=== PATIENT | female | born 2000 | race Caucasian/White ===

== ENCOUNTER 2020-01-17 16:53 | Emergency (ER) | payer OTHER, SELFPAY ==
[2020-01-17 16:58] VITALS: BP 160/92; PULSE 80; RESP 16; TEMP 36.9; O2SAT 95; BMI 46.3
--- NOTE | 2020-01-17 17:09 | PC.NURSE ---
Patient reports she works in [employer] and is on her feet constantly. She presents with feet swelling more right than left. She started a new control medication 2 weeks ago and was concerned the control may be contributing to her condition. Right foot is swollen non-pitting warm and dry. Patient coler is darker pink on right foot. Patient denies any pain just reports that leg feels super heavy with tingling.
--- NOTE | 2020-01-17 17:35 | ED_ITS ---
HPI - Extremity Problem General: Chief complaint: Extremity Problem,Nontraumatic Stated complaint: BOTH FEET SWEELING Time Seen by Provider: 01/17/20 17:25 Source: patient Mode of arrival: ambulatory Limitations: no limitations History of Present Illness: HPI Narrative: Patient is a 19-year-old female who presents to ED today with complaints of bilateral lower extremity swelling mainly to her feet and ankle that she has noticed over the past few days. Patient states with her job she is on her feet for 10 to 12 hours. She has not noticed any redness. Associated symptoms: Deny chest pain or fever(s) Review of Systems Const: Denies: fever or chills Card: Reports: swelling of feet/ankles; Denies: chest pain, palpitations, irregular heart rhythm, edema, lightheadedness, syncope, pre-syncope, shortness of breath on exertion, shortness of breath when lying down, leg pain with exertion or bluish discoloration of hands/feet Resp: Denies: shortness of breath, productive cough or chest congestion Skin/Breast: Denies: redness Neuro: Denies: numbness in extremities, weakness in extremities or changes in sensation PFS ED PFSH: Social History Smoking and tobacco status: never smoked Female Reproductive History: Date of last menstrual period: 01/03/20 Physical Exam Const: COMMON NORMALS: no apparent distress, oriented x3, no limitations and alert NUTRITIONAL APPEARANCE: obese morbidly obese Resp: COMMON NORMALS: normal respiratory effort and clear to auscultation bilaterally AUSCULTATION: clear to auscultation bilaterally Cardio: COMMON NORMALS: regular rate and regular rhythm RATE: regular rate RHYTHM: regular rhythm Extremity: COMMON NORMALS: full ROM, normal capillary refill, no joint enlargement and no calf tenderness OTHER: pt with non pitting edema to bilat eral ankle/feet. Neuro: COMMON NORMALS: oriented x3 SENSORIUM/ORIENTATION: Yes alert Skin: COMMON NORMALS: no rashes or lesions noted GENERAL SKIN EXAM: no rashes or lesions noted OTHER: no redness/warmth Course Vital Signs: Vital signs: Vital Signs Temperature 98.2 F 01/17/20 18:42 Pulse Rate 83 01/17/20 18:42 Respiratory Rate 18 01/17/20 18:42 Blood Pressure 157/75 01/17/20 18:42 Pulse Oximetry 98 01/17/20 18:42 MDM - Extremity (Nontraumatic) MDM Narrative: Medical decision making narrative: Labs look benign. Recommend she start wearing some compression stockings and elevate her extremities after work. Recommend she follow-up with PCP. Lab Data: Labs: Lab Results 01/17/20 01/17/20 Range/Units 17:41 17:41 WBC 9.5 (4.5-13.0) 10^3/ uL RBC 4.51 (4.1-5.3) 10^6/u L Hgb 11.3 L (11.5-15.3) g/dL Hct 36.1 L (37.0-47.0) % MCV 80.0 L (81-99) fL MCH 25.1 L (28.0-34.0) pg MCHC 31.3 (30.0-36.0) g/dL RDW 14.8 (12.1-15.1) % Plt Count 337 (130-400) 10^3/c mm MPV 9.5 (7.4-10.4) fL Neut % (Auto) 68.2 % Lymph % (Auto) 25.0 % [place] % (Auto) 4.8 % Eos % (Auto) 1.6 % Baso % (Auto) 0.2 % Neut # (Auto) 6.5 (1.8-8.0) 10^3/u L Lymph # (Auto) 2.4 (1.5-6.5) 10^3/u L [place] # (Auto) 0.5 (0.2-0.9) 10^3/u L Eos # (Auto) 0.2 (0.0-0.8) 10^3/u L Baso # (Auto) 0.0 (0.0-0.1) 10^3/u L Nucleated RBC % (a uto) 0 % Nucleated RBCs # 0.0 /100WBC Sodium 135 L (136-145) mmol/L Potassium 4.0 (3.5-5.1) mmol/L Chloride 101 (98-107) mmol/L Carbon Dioxide 24 (22-29) mmol/L Anion Gap 14.0 (5-19) BUN 9 (6-20) mg/dL Creatinine 0.5 (0.5-0.9) mg/dL GFR Calculation 157.3 H (90-130) mL/min Glucose 106 (65-115) mg/dL Calculated Osmolal ity 276 L (285-295) mOsm/k g Calcium 9.4 (8.5-10.5) mg/dL Total Bilirubin 0.2 (0.15-1.2) mg/dL AST 20 (0-32) U/L ALT 23 (0-33) U/L Alkaline Phosphata se 64 (35-105) IU/L Total Protein 7.3 (6.6-8.7) g/dL Albumin 4.0 (3.5-5.2) g/dL Globulin 3.3 (1.3-4.6) g/dL Discharge Plan Discharge Patient Disposition: Home, Self-Care Clinical Impression: Bilateral lower extremity edema Condition: Stable Discharge Orders: Discharge Order (Routine); Ordered 01/17/20 Ordered By: Anuradha Gant Referrals: Grace Lopez MD [Primary Care Provider] - Patient Instructions: Leg Edema (ED) Discharge Date/Time: 01/17/20 18:43 Coding Level of Care Code ED General Education Instructor for Pooja Dial
[2020-01-17 17:48] LABS: Basophils % 0.2 %; Eosinophils # 0.2 10^3/uL (0.0-0.8); Eosinophils % 1.6 %; Hematocrit 36.1 % (37.0-47.0); Hemoglobin 11.3 g/dL (11.5-15.3); Lymphocytes # 2.4 10^3/uL (1.5-6.5); Mean Corpuscular HGB Conc 31.3 g/dL (30.0-36.0); Mean Corpuscular Hemoglobin 25.1 pg (28.0-34.0); Mean Platelet Volume 9.5 fL (7.4-10.4); Monocytes # 0.5 10^3/uL (0.2-0.9); Monocytes % 4.8 %; Neutrophils # 6.5 10^3/uL (1.8-8.0); Neutrophils % 68.2 %; Nucleated Red Blood Cells % 0 %; Platelet Count 337 10^3/cmm (130-400); Red Blood Count 4.51 10^6/uL (4.1-5.3); Red Cell Distribution Width 14.8 % (12.1-15.1); White Blood Count 9.5 10^3/uL (4.5-13.0)
[2020-01-17 18:03] LABS: Alanine Aminotransferase 23 U/L (0-33); Alkaline Phosphatase 64 IU/L (35-105); Aspartate Amino Transferase 20 U/L (0-32); Blood Urea Nitrogen 9 mg/dL (6-20); Calcium 9.4 mg/dL (8.5-10.5); Carbon Dioxide 24 mmol/L (22-29); Chloride 101 mmol/L (98-107); Globulin 3.3 g/dL (1.3-4.6); Glomerular Filtration Rate 157.3 mL/min (90-130); Glucose 106 mg/dL (65-115); Osmolality Calculated 276 mOsm/kg (285-295); Sodium 135 mmol/L (136-145); Total Bilirubin 0.2 mg/dL (0.15-1.2); Total Protein 7.3 g/dL (6.6-8.7)
[2020-01-17 18:42] VITALS: BP 157/75; PULSE 83; RESP 18; TEMP 36.8; O2SAT 98
== END 2020-01-17 18:43 | disposition home or self-care (01) ==
PROVIDERS: Emergency Provider Physician Assistant; Family Provider Family Medicine; PCP Family Medicine
DX: R60.0 Localized edema (principal)
CPT/HCPCS: 12345; 36415; 80053; 85025; 99281; 99282

== ENCOUNTER → 2020-03-20 13:51 | Outpatient (BNVA) | payer OTHER, SELFPAY | PROVIDERS: Family Provider Family Medicine; PCP Family Medicine; Visit Provider Internal Medicine Rheumatology | DX: M06.4 Inflammatory polyarthropathy (principal); M10.9 Gout, unspecified; Z79.899 Other long term (current) drug therapy; Z79.52 Long term (current) use of systemic steroids | CPT/HCPCS: 99204 ==

== ENCOUNTER → 2020-03-21 12:57 | Outpatient (BNVA) | payer OTHER, SELFPAY | PROVIDERS: Family Provider Family Medicine; PCP Family Medicine; Visit Provider Internal Medicine Rheumatology | DX: M10.9 Gout, unspecified (principal) | CPT/HCPCS: 36415; 84550 ==

== ENCOUNTER → 2020-05-09 10:20 | Outpatient (BNVA) | payer OTHER, SELFPAY | PROVIDERS: Family Provider Family Medicine; PCP Family Medicine; Visit Provider Internal Medicine Rheumatology | DX: M10.9 Gout, unspecified (principal); Z79.899 Other long term (current) drug therapy | CPT/HCPCS: 36415; 80076; 82565; 84550; 85025; 85651; 86140; 86812 ==

== ENCOUNTER → 2020-07-16 13:57 | Outpatient (BNVA) | payer OTHER, SELFPAY | PROVIDERS: Family Provider Family Medicine; PCP Family Medicine; Visit Provider Internal Medicine Rheumatology | DX: M10.9 Gout, unspecified (principal); M05.9 Rheumatoid arthritis with rheumatoid factor, unspecified; Z79.899 Other long term (current) drug therapy; Z79.52 Long term (current) use of systemic steroids | CPT/HCPCS: 99213 ==

== ENCOUNTER 2020-11-15 03:34 | Emergency (ER) | payer OTHER, SELFPAY ==
[2020-11-15] VITALS (8 sets, daily range): BP systolic 115–163; BP diastolic 73–97; PULSE 104–130; RESP 16–18; TEMP 37.9; O2SAT 91–94
--- NOTE | 2020-11-15 03:40 | XR_ITS ---
WS: [id number] Portable AP upright chest, 11/15/2020 Clinical Data: fever Comparison: PA chest, 07/08/2015. Findings: No nodules, masses or effusions are seen. The heart is normal. The pulmonary vascularity is not increased. No pneumonia or pneumothorax is seen. XR/XR chest 1V portable [id number] Impression: Negative chest.
--- NOTE | 2020-11-15 03:59 | W.ED.FEVER ---
Documented by User: Otoniel Patel MD 11/15/20 04:20 HPI - Fever General: Chief Complaint: Fever Stated Complaint: fever/nausea/diarrhea Time Seen by Provider: 11/15/20 03:36 Source: patient Mode of arrival: ambulatory Limitations: no limitations History of Present Illness: HPI Narrative: 20-year-old female who states she has had a fever along with nausea and diarrhea. States her fever was 100.5 at home. She denies any vomiting but states she is almost vomited times. She had no known sick contacts. Denies any cough Associated symptoms: Reports chills, diarrhea and nausea; Deny abdominal pain, chest pain, dysuria, headache(s) or vomiting Review of Systems Const: Reports: fever(s), chills and body aches; Denies: change in appetite Eyes: Denies: blurry vision or eye discomfort ENMT: Denies: throat pain or dental pain Card: Denies: chest pain Resp: Denies: dyspnea GI: Reports: nausea and diarrhea; Denies: abdominal pain or vomiting : Denies: dysuria Musc: Denies: neck pain or back pain Skin/Breast: Denies: rash Neuro: Denies: headache(s) Psych: Denies: depression Shlomo/Lymph: Denies: easy bruising All/Imm: Denies: urticaria PFSH ED PFSH: Medical History (Updated 11/15/20 @ 09:21 by Julisa Madrigal MD) Anxiety Chronic steroid use Dietary counseling Gout, arthritis High risk medication use Joint pain of ankle and foot Surgical History History of cholecystectomy History of hip surgery pin in right hip Family History Other CAD (coronary artery disease) Diabetes Family history of premature coronary artery disease Hypertension Lung disease Stroke Denies family history of Rheumatoid arthritis Chronic kidney disease (CKD) Systemic lupus erythematosus (SLE) in adult Cancer Social History Smoking and tobacco status: never smoked Alcohol intake: never History of recent travel: No Female Reproductive History: Date of last menstrual period: 01/03/20 Physical Exam Const: COMMON NORMALS: no acute distress, patient oriented x3 and healthy appearing HENMT: COMMON NORMALS: normocephalic and atraumatic HEAD & SCALP: normocephalic and atraumatic Eye: COMMON NORMALS: Equal, round and reactive pupils present and EOMs intact bilaterally PUPIL: Yes Equal, round and reactive pupils present Neck/C-Spine: COMMON NORMALS: full ROM and supple Chest: COMMONS NORMALS: normal inspection of the chest and normal palpation of entire chest wall Resp: COMMON NORMALS: normal respiratory effort, No retractions, No use of accessory muscles and clear to auscultation bilaterally AUSCULTATION: clear to auscultation bilaterally Cardio: COMMON NORMALS: regular rhythm and No murmurs present (Cardio) RATE: tachycardic RHYTHM: regular rhythm GI: COMMON NORMALS: Normal to inspection, nondistended, normoactive bowel sounds present, Soft to palpation, non-tender and no masses PALPATION: Yes Soft to palpation Extremity: COMMON NORMALS: normal to inspection and full ROM Neuro: COMMON NORMALS: patient oriented x3, moves all extremities and no focal motor deficits Psych: COMMON NORMALS: mental status grossly normal, Normal thought process present and cooperative THOUGHT PROCESS: Normal thought process present Skin: COMMON NORMALS: no rashes or lesions noted and no wounds GENERAL SKIN EXAM: no rashes or lesions noted Course Vital Signs: Vital signs: Vital Signs Temperature 100.3 F H 11/15/20 03:40 Pulse Rate 125 H 11/15/20 10:03 Respiratory Rate 18 11/15/20 10:03 Blood Pressure 163/81 11/15/20 10:03 Pulse Oximetry 94 11/15/20 10:03 MDM - Fever Lab Data: Labs: Lab Results 11/15/20 11/15/20 11/15/20 Range/Units 04:07 04:29 04:29 WBC 11.0 H (4.0-10.0) 10^3/ uL RBC 4.76 (4.1-5.3) 10^6/u L Hgb 12.4 (11.5-15.3) g/dL Hct 38.8 (37.0-47.0) % MCV 81.5 (81-99) fL MCH 26.1 L (28.0-34.0) pg MCHC 32.0 (30.0-36.0) g/dL RDW 13.3 (12.1-15.1) % Plt Count 258 (130-400) 10^3/c mm MPV 10.8 H (7.4-10.4) fL Neut % (Auto) 85.9 % Lymph % (Auto) 9.2 % [place] % (Auto) 4.2 % Eos % (Auto) 0.1 % Baso % (Auto) 0.2 % Neut # (Auto) 9.42 H (1.8-7.7) 10^3/u L Lymph # (Auto) 1.0 (0.8-4.8) 10^3/u L [place] # (Auto) 0.5 (0.2-0.9) 10^3/u L Eos # (Auto) 0.0 (0.0-0.8) 10^3/u L Baso # (Auto) 0.0 (0.0-0.1) 10^3/u L Nucleated RBC % (a uto) 0 % Nucleated RBCs # 0.0 /100WBC Sodium 133 L (136-145) mmol/L Potassium 3.7 (3.5-5.1) mmol/L Chloride 100 (98-107) mmol/L Carbon Dioxide 22 (22-29) mmol/L Anion Gap 14.7 (5-19) BUN 8 (6-20) mg/dL Creatinine 0.6 (0.5-0.9) mg/dL GFR Calculation 126.2 (90-130) mL/min Glucose 129 H (65-115) mg/dL Calculated Osmolal ity 276 L (285-295) mOsm/k g Lactate (0.5-2.2) mmol/L Calcium 9.0 (8.5-10.5) mg/dL Total Bilirubin 0.3 (0.15-1.2) mg/dL AST 19 (0-32) U/L ALT 30 (0-33) U/L Alkaline Phosphata se 66 (35-105) IU/L Total Protein 6.5 L (6.6-8.7) g/dL Albumin 3.7 (3.5-5.2) g/dL Globulin 2.8 (1.3-4.6) g/dL HCG, Qual (Negative) Urine Color (Yellow) Urine Appearance (CLEAR) Urine pH (5-7) Ur Specific Gravit y (1.005-1.030) Urine Protein (Negative) Urine Glucose (UA) (Normal) Urine Ketones (Negative) Urine Blood (Negative) Urine Nitrate (Negative) Urine Bilirubin (Negative) Urine Urobilinogen (Negative) mg/dL Ur Leukocyte Viki ase (Negative) Urine RBC (0-2) /hpf Urine WBC (0-5) /hpf Ur Squamous Epith Cells (0-5) /hpf Amorphous Sediment Urine Bacteria (NONE) /hpf Influenza Type A A g Negative (Negative) Influenza Type B A g Negative (Negative) 11/15/20 11/15/20 11/15/20 Range/Units 04:29 04:53 04:53 WBC (4.0-10.0) 10^3/ uL RBC (4.1-5.3) 10^6/u L Hgb (11.5-15.3) g/dL Hct (37.0-47.0) % MCV (81-99) fL MCH (28.0-34.0) pg MCHC (30.0-36.0) g/dL RDW (12.1-15.1) % Plt Count (130-400) 10^3/c mm MPV (7.4-10.4) fL Neut % (Auto) % Lymph % (Auto) % [place] % (Auto) % Eos % (Auto) % Baso % (Auto) % Neut # (Auto) (1.8-7.7) 10^3/u L Lymph # (Auto) (0.8-4.8) 10^3/u L [place] # (Auto) (0.2-0.9) 10^3/u L Eos # (Auto) (0.0-0.8) 10^3/u L Baso # (Auto) (0.0-0.1) 10^3/u L Nucleated RBC % (a uto) % Nucleated RBCs # /100WBC Sodium (136-145) mmol/L Potassium (3.5-5.1) mmol/L Chloride (98-107) mmol/L Carbon Dioxide (22-29) mmol/L Anion Gap (5-19) BUN (6-20) mg/dL Creatinine (0.5-0.9) mg/dL GFR Calculation (90-130) mL/min Glucose (65-115) mg/dL Calculated Osmolal ity (285-295) mOsm/k g Lactate 1.5 (0.5-2.2) mmol/L Calcium (8.5-10.5) mg/dL Total Bilirubin (0.15-1.2) mg/dL AST (0-32) U/L ALT (0-33) U/L Alkaline Phosphata se (35-105) IU/L Total Protein (6.6-8.7) g/dL Albumin (3.5-5.2) g/dL Globulin (1.3-4.6) g/dL HCG, Qual Negative (Negative) Urine Color Yellow (Yellow) Urine Appearance Hazy A (CLEAR) Urine pH 6.5 (5-7) Ur Specific Gravit y 1.005 (1.005-1.030) Urine Protein Neg (Negative) Urine Glucose (UA) Norm (Normal) Urine Ketones 1+ H (Negative) Urine Blood 2+ H (Negative) Urine Nitrate Negative (Negative) Urine Bilirubin Neg (Negative) Urine Urobilinogen Norm (Negative) mg/dL Ur Leukocyte Viki ase 2+ H (Negative) Urine RBC None (0-2) /hpf Urine WBC 55-80 H (0-5) /hpf Ur Squamous Epith Cells 25-40 H (0-5) /hpf Amorphous Sediment Not Reportable Urine Bacteria 3+ H (NONE) /hpf Influenza Type A A g (Negative) Influenza Type B A g (Negative) Imaging Data^: CXR: Attestation: I personally reviewed and interpreted this imaging study as follows: My impression: No acute abnormality Discharge Plan Discharge Patient Disposition: Home Clinical Impression: Enteritis Condition: Stable Prescriptions: New ciprofloxacin HCl 750 mg tablet 750 mg PO BID Qty: 14 RF: 0 metronidazole 500 mg tablet 500 mg PO Q8H 7 Days Qty: 21 RF: 0 ondansetron 4 mg tablet,disintegrating 4 mg PO Q6H PRN (Reason: nausea and vomiting) Qty: 10 RF: 0 Discontinued colchicine 0.6 mg tablet 0.6 mg PO BID Qty: 60 RF: 3 allopurinol 100 mg tablet 100 mg PO QAM RF: 0 No Action norgestimate-ethinyl estradiol [Tri-Sprintec (28)] 0.18/0.215/0.25 mg-35 mcg (28) tablet 1 tab PO QAM RF: 0 Tylenol Extra Strength 500 mg Tablet 1,000 mg PO PRN RF: 0 paroxetine HCl 20 mg tablet 20 mg PO QAM RF: 0 Discharge Orders: Discharge ED (Routine); Ordered 11/15/20 Ordered By: Julisa Madrigal Referrals: Grace Lopez MD [Primary Care Provider] - Discharge Diet: Clear Liquid Discharge Activity: Increase activity as tolerated Patient Instructions: Diarrhea - Adult Activity Restrictions/Additional Instructions: Follow up with your doctor in about a week for a recheck. Return to the ED if worse pain, unable to take or keep down fluids, or any other new or concerning symptoms. Stand Alone Forms: Work/School Release Coding Level of Care Code ED Registered Nurse for Chg Fwd Exam Comprehensive Documented by User: Julisa Madrigal MD 11/15/20 14:23 HPI - Fever General: Chief Complaint: Fever Stated Complaint: fever/nausea/diarrhea Time Seen by Provider: 11/15/20 03:36 [facility] ED PFSH: Medical History (Updated 11/15/20 @ 09:21 by Julisa Madrigal MD) Anxiety Chronic steroid use Dietary counseling Gout, arthritis High risk medication use Joint pain of ankle and foot Surgical History History of cholecystectomy History of hip surgery pin in right hip Family History Other CAD (coronary artery disease) Diabetes Family history of premature coronary artery disease Hypertension Lung disease Stroke Denies family history of Rheumatoid arthritis Chronic kidney disease (CKD) Systemic lupus erythematosus (SLE) in adult Cancer Social History Smoking and tobacco status: never smoked Alcohol intake: never History of recent travel: No Course ED course: I assumed care of this patient from Dr. Patel at shift change. She was waiting for CT scan. She had a Covid test sent but will not be back till tomorrow. Flu was negative. Urine was grossly contaminated and unlikely the source of her symptoms anyway. CT showed fluid in the bowel consistent with enteritis. Also some mesenteric adenitis. She was hydrated in the ER and pain was managed. She was given IV antibiotics for concern with her fever and diarrhea, as well as the adenitis. This all may be viral however is not clear at this time. She works here in [employer] and as such may have had Covid exposure. Her oxygen level is very good. There is nothing in her labs that really suggest that this would be Covid. She clinically looked well and was able to tolerate fluids at the time of discharge. She understands to return if she is worse in any way. Covid test will be back tomorrow and if that is positive she probably should stop the antibiotics. Vital Signs: Vital signs: Vital Signs Temperature 100.3 F H 11/15/20 03:40 Pulse Rate 125 H 11/15/20 10:03 Respiratory Rate 18 11/15/20 10:03 Blood Pressure 163/81 11/15/20 10:03 Pulse Oximetry 94 11/15/20 10:03 MDM - Fever Lab Data: Labs: Lab Results 11/15/20 11/15/20 11/15/20 Range/Units 04:07 04:29 04:29 WBC 11.0 H (4.0-10.0) 10^3/ uL RBC 4.76 (4.1-5.3) 10^6/u L Hgb 12.4 (11.5-15.3) g/dL Hct 38.8 (37.0-47.0) % MCV 81.5 (81-99) fL MCH 26.1 L (28.0-34.0) pg MCHC 32.0 (30.0-36.0) g/dL RDW 13.3 (12.1-15.1) % Plt Count 258 (130-400) 10^3/c mm MPV 10.8 H (7.4-10.4) fL Neut % (Auto) 85.9 % Lymph % (Auto) 9.2 % [place] % (Auto) 4.2 % Eos % (Auto) 0.1 % Baso % (Auto) 0.2 % Neut # (Auto) 9.42 H (1.8-7.7) 10^3/u L Lymph # (Auto) 1.0 (0.8-4.8) 10^3/u L [place] # (Auto) 0.5 (0.2-0.9) 10^3/u L Eos # (Auto) 0.0 (0.0-0.8) 10^3/u L Baso # (Auto) 0.0 (0.0-0.1) 10^3/u L Nucleated RBC % (a uto) 0 % Nucleated RBCs # 0.0 /100WBC Sodium 133 L (136-145) mmol/L Potassium 3.7 (3.5-5.1) mmol/L Chloride 100 (98-107) mmol/L Carbon Dioxide 22 (22-29) mmol/L Anion Gap 14.7 (5-19) BUN 8 (6-20) mg/dL Creatinine 0.6 (0.5-0.9) mg/dL GFR Calculation 126.2 (90-130) mL/min Glucose 129 H (65-115) mg/dL Calculated Osmolal ity 276 L (285-295) mOsm/k g Lactate (0.5-2.2) mmol/L Calcium 9.0 (8.5-10.5) mg/dL Total Bilirubin 0.3 (0.15-1.2) mg/dL AST 19 (0-32) U/L ALT 30 (0-33) U/L Alkaline Phosphata se 66 (35-105) IU/L Total Protein 6.5 L (6.6-8.7) g/dL Albumin 3.7 (3.5-5.2) g/dL Globulin 2.8 (1.3-4.6) g/dL HCG, Qual (Negative) Urine Color (Yellow) Urine Appearance (CLEAR) Urine pH (5-7) Ur Specific Gravit y (1.005-1.030) Urine Protein (Negative) Urine Glucose (UA) (Normal) Urine Ketones (Negative) Urine Blood (Negative) Urine Nitrate (Negative) Urine Bilirubin (Negative) Urine Urobilinogen (Negative) mg/dL Ur Leukocyte Viki ase (Negative) Urine RBC (0-2) /hpf Urine WBC (0-5) /hpf Ur Squamous Epith Cells (0-5) /hpf Amorphous Sediment Urine Bacteria (NONE) /hpf Influenza Type A A g Negative (Negative) Influenza Type B A g Negative (Negative) 11/15/20 11/15/20 11/15/20 Range/Units 04:29 04:53 04:53 WBC (4.0-10.0) 10^3/ uL RBC (4.1-5.3) 10^6/u L Hgb (11.5-15.3) g/dL Hct (37.0-47.0) % MCV (81-99) fL MCH (28.0-34.0) pg MCHC (30.0-36.0) g/dL RDW (12.1-15.1) % Plt Count (130-400) 10^3/c mm MPV (7.4-10.4) fL Neut % (Auto) % Lymph % (Auto) % [place] % (Auto) % Eos % (Auto) % Baso % (Auto) % Neut # (Auto) (1.8-7.7) 10^3/u L Lymph # (Auto) (0.8-4.8) 10^3/u L [place] # (Auto) (0.2-0.9) 10^3/u L Eos # (Auto) (0.0-0.8) 10^3/u L Baso # (Auto) (0.0-0.1) 10^3/u L Nucleated RBC % (a uto) % Nucleated RBCs # /100WBC Sodium (136-145) mmol/L Potassium (3.5-5.1) mmol/L Chloride (98-107) mmol/L Carbon Dioxide (22-29) mmol/L Anion Gap (5-19) BUN (6-20) mg/dL Creatinine (0.5-0.9) mg/dL GFR Calculation (90-130) mL/min Glucose (65-115) mg/dL Calculated Osmolal ity (285-295) mOsm/k g Lactate 1.5 (0.5-2.2) mmol/L Calcium (8.5-10.5) mg/dL Total Bilirubin (0.15-1.2) mg/dL AST (0-32) U/L ALT (0-33) U/L Alkaline Phosphata se (35-105) IU/L Total Protein (6.6-8.7) g/dL Albumin (3.5-5.2) g/dL Globulin (1.3-4.6) g/dL HCG, Qual Negative (Negative) Urine Color Yellow (Yellow) Urine Appearance Hazy A (CLEAR) Urine pH 6.5 (5-7) Ur Specific Gravit y 1.005 (1.005-1.030) Urine Protein Neg (Negative) Urine Glucose (UA) Norm (Normal) Urine Ketones 1+ H (Negative) Urine Blood 2+ H (Negative) Urine Nitrate Negative (Negative) Urine Bilirubin Neg (Negative) Urine Urobilinogen Norm (Negative) mg/dL Ur Leukocyte Viki ase 2+ H (Negative) Urine RBC None (0-2) /hpf Urine WBC 55-80 H (0-5) /hpf Ur Squamous Epith Cells 25-40 H (0-5) /hpf Amorphous Sediment Not Reportable Urine Bacteria 3+ H (NONE) /hpf Influenza Type A A g (Negative) Influenza Type B A g (Negative) Discharge Plan Discharge Patient Disposition: Home Clinical Impression: Enteritis Condition: Stable Prescriptions: New ciprofloxacin HCl 750 mg tablet 750 mg PO BID Qty: 14 RF: 0 metronidazole 500 mg tablet 500 mg PO Q8H 7 Days Qty: 21 RF: 0 ondansetron 4 mg tablet,disintegrating 4 mg PO Q6H PRN (Reason: nausea and vomiting) Qty: 10 RF: 0 Discontinued colchicine 0.6 mg tablet 0.6 mg PO BID Qty: 60 RF: 3 allopurinol 100 mg tablet 100 mg PO QAM RF: 0 No Action norgestimate-ethinyl estradiol [Tri-Sprintec (28)] 0.18/0.215/0.25 mg-35 mcg (28) tablet 1 tab PO QAM RF: 0 Tylenol Extra Strength 500 mg Tablet 1,000 mg PO PRN RF: 0 paroxetine HCl 20 mg tablet 20 mg PO QAM RF: 0 Discharge Orders: Discharge ED (Routine); Ordered 11/15/20 Ordered By: Julisa Madrigal Referrals: Grace Lopez MD [Primary Care Provider] - Discharge Diet: Clear Liquid Discharge Activity: Increase activity as tolerated Patient Instructions: Diarrhea - Adult Activity Restrictions/Additional Instructions: Follow up with your doctor in about a week for a recheck. Return to the ED if worse pain, unable to take or keep down fluids, or any other new or concerning symptoms. Stand Alone Forms: Work/School Release Coding Level of Care Code ED Registered Nurse for Pooja Fwnalini Exam Comprehensive
[2020-11-15] MEDS: sodium chloride 0.9% 1,000 ML 999 ML IV ×2 (04:29→05:08)
[2020-11-15] MEDS: ondansetron 2 mg/ML SDV 2 mL 4 MG IVP ×2 (04:29→05:06)
[2020-11-15] MEDS: acetaminophen 325 mg Tablet 650 MG PO (04:29)
[2020-11-15 04:44] LABS: Basophils % 0.2 %; Eosinophils % 0.1 %; Hematocrit 38.8 % (37.0-47.0); Hemoglobin 12.4 g/dL (11.5-15.3); Lymphocytes % 9.2 %; Mean Corpuscular Hemoglobin 26.1 pg (28.0-34.0); Mean Corpuscular Volume 81.5 fL (81-99); Mean Platelet Volume 10.8 fL (7.4-10.4); Monocytes # 0.5 10^3/uL (0.2-0.9); Monocytes % 4.2 %; Neutrophils # 9.42 10^3/uL (1.8-7.7); Neutrophils % 85.9 %; Nucleated Red Blood Cells % 0 %; Platelet Count 258 10^3/cmm (130-400); Red Blood Count 4.76 10^6/uL (4.1-5.3); Red Cell Distribution Width 13.3 % (12.1-15.1)
--- NOTE | 2020-11-15 04:53 | CTR_ITS ---
PROCEDURE INFORMATION: Exam: CT Abdomen And Pelvis With Contrast Exam date and time: 11/15/2020 4:56 AM Age: 20 years old Clinical indication: Fever and nausea; Abdominal pain; Generalized; Prior surgery; Surgery type: Gb. Hip pinning. ; Patient HX: Fever with diffuse abd pain, nausea, and diarrhea. TECHNIQUE: Imaging protocol: Computed tomography of the abdomen and pelvis with intravenous contrast. Radiation optimization: All CT scans at this facility use at least one of these dose optimization techniques: automated exposure control; mA and/or kV adjustment per patient size (includes targeted exams where dose is matched to clinical indication); or iterative reconstruction. Contrast material: OMNI 300; Contrast volume: 95 ml; Contrast route: INTRAVENOUS (IV); COMPARISON: CR Hip 2-3v LEFT wwo Pelv* [id number] 12/26/2013 4:08 PM RADIATION DOSE METRICS: Total DLP (mGy-cm): 1874.35 FINDINGS: Liver: Normal. No mass. Gallbladder and bile ducts: Cholecystectomy. Normal bile ducts. Pancreas: Normal. No ductal dilation. Spleen: Normal. No splenomegaly. Adrenal glands: Normal. No mass. Kidneys and ureters: Normal. No hydronephrosis. Stomach and bowel: There are multiple nondilated fluid-filled loops of small bowel. Fluid is present in the right-sided colon. This is nonspecific but could indicate an enteritis. Appendix: The appendix is identified and is normal. Intraperitoneal space: See Lymph nodes finding. Vasculature: Unremarkable. No abdominal aortic aneurysm. Lymph nodes: There are multiple mildly enlarged lymph nodes in the right lower quadrant mesentery. This may represent a mesenteric lymphadenitis. Urinary bladder: Unremarkable as visualized. Reproductive: There is a 2 cm follicle in the right ovary. The uterus and adnexal structures are unremarkable. Bones/joints: Unremarkable. No acute fracture. Soft tissues: Unremarkable. CT/CT abdomen pelvis w con* [id number] IMPRESSION: 1. There are mildly enlarged mesenteric lymph nodes suspicious for a mesenteric lymphadenitis. 2. Multiple nondilated loops of fluid-filled small bowel and right-sided colon. Nonspecific but could indicate an enteritis. 3. Normal appendix. Radiation Dose CTDIVOL = (mGy): DLP = 1874.35 (mGy-cm)
[2020-11-15] MEDS: morphine 4 mg/mL SDV 1 mL IVP (05:06)
[2020-11-15 05:12] LABS: Lactate (Lactic Acid level) 1.5 mmol/L (0.5-2.2)
[2020-11-15 05:14] LABS: Influenza A by IFA Negative (Negative); Influenza B by IFA Negative (Negative)
[2020-11-15 05:18] LABS: HCG Qualitative Urine. Negative (Negative)
[2020-11-15 05:18] LABS: Alanine Aminotransferase 30 U/L (0-33); Albumin Level 3.7 g/dL (3.5-5.2); Alkaline Phosphatase 66 IU/L (35-105); Anion Gap 14.7 (5-19); Aspartate Amino Transferase 19 U/L (0-32); Blood Urea Nitrogen 8 mg/dL (6-20); Carbon Dioxide 22 mmol/L (22-29); Chloride 100 mmol/L (98-107); Globulin 2.8 g/dL (1.3-4.6); Glomerular Filtration Rate 126.2 mL/min (90-130); Glucose 129 mg/dL (65-115); Osmolality Calculated 276 mOsm/kg (285-295); Potassium 3.7 mmol/L (3.5-5.1); Sodium 133 mmol/L (136-145); Total Bilirubin 0.3 mg/dL (0.15-1.2); Total Protein 6.5 g/dL (6.6-8.7)
[2020-11-15 05:19] LABS: Add Urine Microscopic? YES; Bilirubin Urine Neg (Negative); Blood Urine 2+ (Negative); Glucose Urine UA Norm (Normal); Ketones Urine 1+ (Negative); Leukocyte Esterase Urine 2+ (Negative); Nitrate Urine Negative (Negative); Protein Urine Neg (Negative); Specific Gravity, Urine 1.005 (1.005-1.030); Urine Appearance Hazy (CLEAR); Urine Color Yellow (Yellow); Urobilinogen Urine Norm (Negative); pH Urine 6.5 (5-7)
[2020-11-15 05:21] LABS: Add Urine Culture? No; Bacteria Urine 3+ /hpf; Squamous Epithelial Cell Urine 25-40 /hpf (0-5); WBC Urine 55-80 /hpf (0-5)
[2020-11-15] MEDS: iohexol 300 mg/mL 100 mL Btl IV (05:54)
[2020-11-15] MEDS: metroNIDAZOLE IV 500 MG/100 ML PREMIX 100 MG IV (08:27)
[2020-11-15] MEDS: ciprofloxacin 400 MG/200 ML PREMIX 200 MG IV (08:27)
[2020-11-16 06:32] LABS: Coronavirus Test Green County Not Detected
== END 2020-11-15 09:42 | disposition home or self-care (01) ==
PROVIDERS: Emergency Medicine; Emergency Provider Emergency Medicine; PCP Family Medicine
DX: K52.9 Noninfective gastroenteritis and colitis, unspecified (principal)
CPT/HCPCS: 12345; 71045; 74177; 80053; 81001; 81025; 83605; 85025; 87635; 87804; 96365; 96367; 96375; 96376; 99283; 99284; J0744; J2270; J2405; J7030; Q9967; S0030

== ENCOUNTER → 2020-11-26 15:21 | Outpatient (BNVA) | payer OTHER, SELFPAY | PROVIDERS: Visit Provider Internal Medicine Rheumatology | DX: M10.9 Gout, unspecified (principal); Z79.899 Other long term (current) drug therapy; Z71.3 Dietary counseling and surveillance; Z68.43 Body mass index [BMI] 50.0-59.9, adult | CPT/HCPCS: 99213; 99214 ==

== ENCOUNTER 2021-03-26 20:00 | Outpatient (CLI) | payer OTHER, SELFPAY | END 2021-03-26 20:01 | disposition home or self-care (01) | LOC: SLEEP 03-27 09:25 | PROVIDERS: Visit Provider Nurse Practitioner | DX: G47.10 Hypersomnia, unspecified (principal); R06.83 Snoring; R53.83 Other fatigue; G47.33 Obstructive sleep apnea (adult) (pediatric) | CPT/HCPCS: 95810 ==

== ENCOUNTER → 2021-03-27 09:48 | Outpatient (BNVA) | payer OTHER, SELFPAY | PROVIDERS: PCP Nurse Practitioner; Visit Provider Internal Medicine Rheumatology | DX: Z79.899 Other long term (current) drug therapy (principal) | CPT/HCPCS: 36415; 80076; 82565; 84550; 85025; 85651; 86140 ==

== ENCOUNTER → 2021-05-01 14:53 | Outpatient (BNVA) | payer OTHER, SELFPAY | PROVIDERS: PCP Nurse Practitioner; Visit Provider Internal Medicine Rheumatology | DX: M10.9 Gout, unspecified (principal); Z79.899 Other long term (current) drug therapy; Z71.3 Dietary counseling and surveillance; Z68.43 Body mass index [BMI] 50.0-59.9, adult | CPT/HCPCS: 99214 ==

== ENCOUNTER → 2021-07-18 09:55 | Outpatient (BNVA) | payer OTHER, SELFPAY | PROVIDERS: PCP Nurse Practitioner; Visit Provider Internal Medicine Rheumatology | DX: Z79.899 Other long term (current) drug therapy (principal); M10.9 Gout, unspecified; M19.90 Unspecified osteoarthritis, unspecified site | CPT/HCPCS: 36415; 80076; 82565; 85025; 86140 ==

== ENCOUNTER 2021-12-18 20:00 | Outpatient (CLI) | payer OTHER, SELFPAY | END 2021-12-18 20:01 | disposition home or self-care (01) | LOC: SLEEP 12-19 07:14 | PROVIDERS: PCP Nurse Practitioner; Visit Provider Nurse Practitioner | DX: G47.33 Obstructive sleep apnea (adult) (pediatric) (principal) | CPT/HCPCS: 95811 ==

== ENCOUNTER 2022-08-02 16:04 | Emergency (ER) | payer OTHER, SELFPAY ==
[2022-08-02 16:08] VITALS: BP 178/94; PULSE 108; RESP 16; TEMP 36.6; O2SAT 94
--- NOTE | 2022-08-02 16:13 | ECG_ITS ---
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 Measurements Intervals [place] Rate: 107 P: 56 SC: 140 QRS: 18 QRSD: 82 T: 32 QT: 317 QTc: 424 Interpretive Statements SINUS TACHYCARDIA ABNORMAL RHYTHM ECG No previous ECG available for comparison Electronically Signed On 08-03-2022 22:06:54 CDT by Cristhian Leach M.D. [id number]
[2022-08-02 16:22] VITALS: PULSE 120; RESP 20; O2SAT 99
[2022-08-02 16:30] VITALS: BP 163/113; PULSE 103; RESP 17; O2SAT 99
--- NOTE | 2022-08-02 16:31 | W.ED.CHESTPA ---
HPI - Chest Pain General: Chief Complaint: Chest Pain Stated Complaint: Chest Pain Time Seen by Provider: 08/02/22 16:16 History of Present Illness: Patient comes in with chest pain. She describes it as sharp, midsternal, radiates to her back, worse with deep inspiration. States she was diagnosed with strep throat today. She denies cough, congestion. She states that she takes control. Associated symptoms: Reports fever(s); Deny abdominal pain, dyspnea, nausea, palpitations or vomiting Review of Systems Const: Reports: fever(s); Denies: body aches Eyes: Denies: change in vision or blurry vision ENMT: Reports: throat pain; Denies: odynophagia Card: Reports: chest pain; Denies: palpitations Resp: Denies: dyspnea or productive cough GI: Denies: abdominal pain, nausea or vomiting : Denies: flank pain or dysuria Musc: Denies: neck pain or back pain Skin/Breast: Denies: rash or pruritus Neuro: Denies: headache(s) or numbness in extremities Psych: Denies: anxiety or change in appetite Endo: Denies: polyuria or excessive sweating PFSH ED PFSH: Medical History Anxiety Chronic steroid use Dietary counseling Gout, arthritis High risk medication use Joint pain of ankle and foot Surgical History History of cholecystectomy History of hip surgery pin in right hip Family History Other CAD (coronary artery disease) Diabetes Family history of premature coronary artery disease Hypertension Lung disease Stroke Denies family history of Rheumatoid arthritis Chronic kidney disease (CKD) Systemic lupus erythematosus (SLE) in adult Cancer Social History Smoking and tobacco status: never smoked Alcohol intake: never History of recent travel: No Female Reproductive History: Date of last menstrual period: 01/03/20 Physical Exam Const: COMMON NORMALS: no acute distress, patient oriented x3, healthy appearing and alert HENMT: COMMON NORMALS: normocephalic and atraumatic HEAD & SCALP: normocephalic and atraumatic Eye: COMMON NORMALS: Equal, round and reactive pupils present and EOMs intact bilaterally PUPIL: Yes Equal, round and reactive pupils present Neck/C-Spine: COMMON NORMALS: full ROM and supple Resp: COMMON NORMALS: No retractions and No use of accessory muscles OTHER: Tachypnea Cardio: COMMON NORMALS: regular rhythm RHYTHM: regular rhythm OTHER: Tachycardia GI: COMMON NORMALS: Normal to inspection, nondistended, normoactive bowel sounds present, Soft to palpation and non-tender PALPATION: Yes Soft to palpation Back/Pelvis: COMMON NORMALS: thoracic and lumbar spine normal to inspection and no thoracic nor lumbar tenderness Extremity: COMMON NORMALS: normal to inspection and full ROM Neuro: COMMON NORMALS: patient oriented x3 SENSORIUM/ORIENTATION: Yes alert Psych: COMMON NORMALS: mental status grossly normal and cooperative Skin: COMMON NORMALS: no rashes or lesions noted and no wounds GENERAL SKIN EXAM: no rashes or lesions noted Course Vital Signs: Vital signs: Vital Signs Temperature 97.8 F 08/02/22 16:08 Pulse Rate 80 08/02/22 17:00 Respiratory Rate 22 H 08/02/22 17:00 Blood Pressure 174/90 08/02/22 17:00 Pulse Oximetry 96 08/02/22 17:00 MDM - Chest Pain Medical Decision Making Patient comes in with chest pain. She describes it as sharp, midsternal, radiates to her back, worse with deep inspiration. States she was diagnosed with strep throat today. She denies cough, congestion. She states that she takes control. Physical exam she is tachycardic. We will check labs, give IV fluids, and reassess. On reassessment I talked to the patient about the test results. We will discharge home at this time with precautions to return for worsening or changing symptoms. Lab Data : 08/02/22 16:35 08/02/22 16:35 Laboratory Results WBC 21.7 10^3/uL (4.0-10.0) H 08/02/22 16:35 RBC 4.70 10^6/uL (4.1-5.3) 08/02/22 16:35 Hgb 11.9 g/dL (11.5-15.3) 08/02/22 16:35 Hct 37.2 % (37.0-47.0) 08/02/22 16:35 MCV 79.1 fl (81-99) L 08/02/22 16:35 MCH 25.3 pg (28.0-34.0) L 08/02/22 16:35 MCHC 32.0 g/dL (30.0-36.0) 08/02/22 16:35 RDW 14.5 % (12.1-15.1) 08/02/22 16:35 Plt Count 333 10^3/cmm (130-400) 08/02/22 16:35 MPV 10.2 fL (7.4-10.4) 08/02/22 16:35 Neut % (Auto) 83.6 % 08/02/22 16:35 Lymph % (Auto) 11.4 % 08/02/22 16:35 [place] % (Auto) 4.2 % 08/02/22 16:35 Eos % (Auto) 0.0 % 08/02/22 16:35 Baso % (Auto) 0.2 % 08/02/22 16:35 Neut # (Auto) 18.19 10^3/uL (1.8-7.7) H 08/02/22 16:35 Lymph # (Auto) 2.5 10^3/uL (0.8-4.8) 08/02/22 16:35 [place] # (Auto) 0.9 10^3/uL (0.2-0.9) 08/02/22 16:35 Eos # (Auto) 0.0 10^3/uL (0.0-0.8) 08/02/22 16:35 Baso # (Auto) 0.0 10^3/uL (0.0-0.1) 08/02/22 16:35 Nucleated RBC % (auto) 0 % 08/02/22 16:35 Nucleated RBCs # 0.0 /100WBC 08/02/22 16:35 D-Dimer 0.58 ug/mIFEU (0-0.59) 08/02/22 16:45 Sodium 132 mmol/L (136-145) L 08/02/22 16:35 Potassium 3.5 mmol/L (3.5-5.1) 08/02/22 16:35 Chloride 96 mmol/L (98-107) L 08/02/22 16:35 Carbon Dioxide 23 mmol/L (22-29) 08/02/22 16:35 Anion Gap 16.5 (5-19) 08/02/22 16:35 BUN 7 mg/dL (6-20) 08/02/22 16:35 Creatinine 0.5 mg/dL (0.5-0.9) 08/02/22 16:35 GFR Calculation 154.3 mL/min (90-130) H 08/02/22 16:35 Glucose 131 mg/dL (65-115) H 08/02/22 16:35 Calculated Osmolality 274 mOsm/kg (285-295) L 08/02/22 16:35 Calcium 9.1 mg/dL (8.5-10.5) 08/02/22 16:35 Total Bilirubin 0.5 mg/dL (0.15-1.2) 08/02/22 16:35 AST 16 U/L (0-32) 08/02/22 16:35 ALT 14 U/L (0-33) 08/02/22 16:35 Alkaline Phosphatase 127 U/L (35-105) H 08/02/22 16:35 Total Protein 7.2 g/dL (6.6-8.7) 08/02/22 16:35 Albumin 3.9 g/dL (3.5-5.2) 08/02/22 16:35 Globulin 3.3 g/dL (1.3-4.6) 08/02/22 16:35 Discharge Plan Discharge Patient Disposition: Home Clinical Impression: Nonspecific chest pain Condition: Stable Prescriptions: No Action norgestimate-ethinyl estradiol [Tri-Sprintec (28)] 0.18/0.215/0.25 mg-35 mcg (28) tablet 1 tab PO QAM allopurinol 100 mg tablet 100 mg PO DAILY Qty: 90 1RF prednisone 5 mg tablet See Rx Instructions PO .COMPLEX PRN Rx Instructions: take 2 tabs daily for 3-5 days prn joint pain flare PO PRN; paroxetine HCl 20 mg tablet 20 mg PO QAM Discharge Orders: Discharge ED (Routine); Ordered 08/02/22 Ordered By: Brian Platt Referrals: Candida Bourne, GEOLOGICAL TECHNICAL OFFICER [Primary Care Provider] - Patient Instructions: Pain Management Coding Level of Care Code ED Donation Specialist for Chg Fwd Exam Comprehensive
[2022-08-02] MEDS: sodium chloride 0.9% 1,000 ML 999 ML IV (16:39)
[2022-08-02 16:43] LABS: Basophils % 0.2 %; Hematocrit 37.2 % (37.0-47.0); Hemoglobin 11.9 g/dL (11.5-15.3); Lymphocytes # 2.5 10^3/uL (0.8-4.8); Lymphocytes % 11.4 %; Mean Corpuscular Hemoglobin 25.3 pg (28.0-34.0); Mean Corpuscular Volume 79.1 fl (81-99); Mean Platelet Volume 10.2 fL (7.4-10.4); Monocytes # 0.9 10^3/uL (0.2-0.9); Monocytes % 4.2 %; Neutrophils # 18.19 10^3/uL (1.8-7.7); Neutrophils % 83.6 %; Nucleated Red Blood Cells % 0 %; Platelet Count 333 10^3/cmm (130-400); Red Cell Distribution Width 14.5 % (12.1-15.1); White Blood Count 21.7 10^3/uL (4.0-10.0)
[2022-08-02 17:00] VITALS: BP 174/90; PULSE 80; RESP 22; O2SAT 96
[2022-08-02 17:16] LABS: D Dimer 0.58 ug/mIFEU (0-0.59)
[2022-08-02 17:27] LABS: Alanine Aminotransferase 14 U/L (0-33); Albumin Level 3.9 g/dL (3.5-5.2); Alkaline Phosphatase 127 U/L (35-105); Anion Gap 16.5 (5-19); Aspartate Amino Transferase 16 U/L (0-32); Blood Urea Nitrogen 7 mg/dL (6-20); Calcium 9.1 mg/dL (8.5-10.5); Carbon Dioxide 23 mmol/L (22-29); Chloride 96 mmol/L (98-107); Globulin 3.3 g/dL (1.3-4.6); Glomerular Filtration Rate 154.3 mL/min (90-130); Glucose 131 mg/dL (65-115); Osmolality Calculated 274 mOsm/kg (285-295); Potassium 3.5 mmol/L (3.5-5.1); Sodium 132 mmol/L (136-145); Total Bilirubin 0.5 mg/dL (0.15-1.2); Total Protein 7.2 g/dL (6.6-8.7)
== END 2022-08-02 17:42 | disposition home or self-care (01) ==
PROVIDERS: Emergency Provider Emergency Medicine; PCP Nurse Practitioner
DX: R07.89 Other chest pain (principal)
CPT/HCPCS: 80053; 85025; 85378; 93005; 96360; 99284; J7030

== ENCOUNTER 2022-09-30 12:21 | Oncology outpatient (recurring) (ONCR) | payer OTHER, SELFPAY ==
[2022-09-30] MEDS: ferric carboxy (IVPB) 750 MG in sodium chloride 0.9% (100 ml) 100 ML 345 MG IV (13:35)
[2022-09-30 14:21] VITALS: BP 120/62; PULSE 72; RESP 16; TEMP 36.7; O2SAT 98
== END 2022-10-01 23:59 | disposition home or self-care (01) ==
PROVIDERS: PCP Nurse Practitioner Family; Visit Provider Internal Medicine Medical Oncology
DX: D50.9 Iron deficiency anemia, unspecified (principal); Z79.899 Other long term (current) drug therapy
CPT/HCPCS: 96365; J1439

== ENCOUNTER 2022-10-01 22:27 | Emergency (ER) | payer OTHER, SELFPAY ==
[2022-10-01 22:43] VITALS: BP 136/101; PULSE 122; RESP 20; TEMP 36.4; O2SAT 95
--- NOTE | 2022-10-01 22:49 | ED_ITS ---
HPI - Nausea/Vomiting/Diarrhea General: Chief complaint: Nausea/Vomiting/Diarrhea Stated complaint: n/v Time Seen by Provider: 10/01/22 22:32 Source: patient Mode of arrival: ambulatory Limitations: no limitations History of Present Illness: 22-year-old female who states that she has been having nausea and vomiting over the last 2 days. She is also had some diarrhea states is worse today. States she is currently on antibiotics for strep which she tested positive for over the weekend also had her first iron infusion yesterday as well. States vomiting was severe tonight. She denies any pain denies any worsening proving factors. Associated nausea: Yes Associated symtoms: Reports nausea; Denies chest pain, dysuria or headache(s) Review of Systems Const: Denies: fever(s), chills, body aches or change in appetite Eyes: Denies: blurry vision or eye discomfort ENMT: Denies: throat pain or dental pain Card: Denies: chest pain Resp: Denies: dyspnea GI: Reports: nausea and vomiting : Denies: dysuria Musc: Denies: neck pain or back pain Skin/Breast: Denies: rash Neuro: Denies: headache(s) Psych: Denies: depression Shlomo/Lymph: Denies: easy bruising All/Imm: Denies: urticaria PFSH ED PFSH: Medical History Anxiety DUB (dysfunctional uterine bleeding) Gout, arthritis Surgical History History of cholecystectomy History of hip surgery pin in right hip Family History Other CAD (coronary artery disease) Diabetes Family history of premature coronary artery disease Hypertension Lung disease Stroke Denies family history of Rheumatoid arthritis Chronic kidney disease (CKD) Systemic lupus erythematosus (SLE) in adult Cancer Social History Smoking and tobacco status: never smoked Alcohol intake: never History of recent travel: No Female Reproductive History: Date of last menstrual period: 01/03/20 Physical Exam Const: COMMON NORMALS: no acute distress, patient oriented x3 and healthy appearing HENMT: COMMON NORMALS: normocephalic and atraumatic HEAD & SCALP: normocephalic and atraumatic Eye: COMMON NORMALS: Equal, round and reactive pupils present and EOMs intact bilaterally PUPIL: Yes Equal, round and reactive pupils present Neck/C-Spine: COMMON NORMALS: full ROM and supple Chest: COMMONS NORMALS: normal inspection of the chest and normal palpation of entire chest wall Resp: COMMON NORMALS: normal respiratory effort, No retractions, No use of accessory muscles and clear to auscultation bilaterally AUSCULTATION: clear to auscultation bilaterally Cardio: COMMON NORMALS: regular rate, regular rhythm and No murmurs present (Cardio) RATE: regular rate RHYTHM: regular rhythm GI: COMMON NORMALS: Normal to inspection, nondistended, normoactive bowel sounds present, Soft to palpation, non-tender and no masses PALPATION: Yes Soft to palpation Extremity: COMMON NORMALS: normal to inspection and full ROM Neuro: COMMON NORMALS: patient oriented x3, moves all extremities and no focal motor deficits Psych: COMMON NORMALS: mental status grossly normal, Normal thought process present and cooperative THOUGHT PROCESS: Normal thought process present Skin: COMMON NORMALS: no rashes or lesions noted and no wounds GENERAL SKIN EXAM: no rashes or lesions noted Course Vital Signs: Vital signs: Vital Signs Temperature 97.6 F 10/01/22 22:43 Pulse Rate 87 10/01/22 23:15 Respiratory Rate 16 10/01/22 23:15 Blood Pressure 164/87 10/01/22 23:15 Pulse Oximetry 98 10/01/22 23:15 Oxygen Delivery Me thod 10/01/22 23:15 MDM - Nausea/Vomiting/Diarrhea Medical Decision Making Patient presents here with vomiting feels improved after Zofran her blood work here is normal her abdominal exam is benign she is stable for discharge she is to follow-up with PCP and return if worsening. Lab Data 10/01/22 23:09 10/01/22 23:09 Laboratory Results WBC 14.3 10^3/uL (4.0-10.0) H 10/01/22 23:09 RBC 4.82 10^6/uL (4.1-5.3) 10/01/22 23:09 Hgb 12.2 g/dL (11.5-15.3) 10/01/22 23:09 Hct 38.0 % (37.0-47.0) 10/01/22 23:09 MCV 78.8 fl (81-99) L 10/01/22 23:09 MCH 25.3 pg (28.0-34.0) L 10/01/22 23:09 MCHC 32.1 g/dL (30.0-36.0) 10/01/22 23:09 RDW 14.4 % (12.1-15.1) 10/01/22 23:09 Plt Count 371 10^3/cmm (130-400) 10/01/22 23:09 MPV 10.1 fL (7.4-10.4) 10/01/22 23:09 Neut % (Auto) 76.4 % 10/01/22 23:09 Lymph % (Auto) 16.7 % 10/01/22 23:09 [place] % (Auto) 4.9 % 10/01/22 23:09 Eos % (Auto) 1.2 % 10/01/22 23:09 Baso % (Auto) 0.3 % 10/01/22 23:09 Neut # (Auto) 10.90 10^3/uL (1.8-7.7) H 10/01/22 23:09 Lymph # (Auto) 2.4 10^3/uL (0.8-4.8) 10/01/22 23:09 [place] # (Auto) 0.7 10^3/uL (0.2-0.9) 10/01/22 23:09 Eos # (Auto) 0.2 10^3/uL (0.0-0.8) 10/01/22 23:09 Baso # (Auto) 0.0 10^3/uL (0.0-0.1) 10/01/22 23:09 Nucleated RBC % (auto) 0 % 10/01/22 23:09 Nucleated RBCs # 0.0 /100WBC 10/01/22 23:09 Sodium 140 mmol/L (136-145) 10/01/22 23:09 Potassium 4.1 mmol/L (3.5-5.1) 10/01/22 23:09 Chloride 104 mmol/L (98-107) 10/01/22 23:09 Carbon Dioxide 24 mmol/L (22-29) 10/01/22 23:09 Anion Gap 16.1 (5-19) 10/01/22 23:09 BUN 17 mg/dL (6-20) 10/01/22 23:09 Creatinine 0.5 mg/dL (0.5-0.9) 10/01/22 23:09 Glucose 102 mg/dL (65-115) 10/01/22 23:09 Calculated Osmolality 292 mOsm/kg (285-295) 10/01/22 23:09 Calcium 9.6 mg/dL (8.5-10.5) 10/01/22 23:09 Total Bilirubin 0.2 mg/dL (0.15-1.2) 10/01/22 23:09 AST 14 U/L (0-32) 10/01/22 23:09 ALT 13 U/L (0-33) 10/01/22 23:09 Alkaline Phosphatase 74 U/L (35-105) 10/01/22 23:09 Total Protein 7.2 g/dL (6.6-8.7) 10/01/22 23:09 Albumin 3.9 g/dL (3.5-5.2) 10/01/22 23:09 Globulin 3.3 g/dL (1.3-4.6) 10/01/22 23:09 Lipase 16 U/L (13-60) 10/01/22 23:09 HCG, Qual Negative (Negative) 10/01/22 23:09 Influenza Type A Ag negative (Negative) 10/01/22 22:45 Influenza Type B Ag negative (Negative) 10/01/22 22:45 Discharge Plan Discharge Patient Disposition: Home Clinical Impression: Vomiting Condition: Stable Prescriptions: New ondansetron 4 mg tablet,disintegrating 4 mg PO Q6H PRN (Reason: nausea and vomiting) Qty: 14 0RF No Action norgestimate-ethinyl estradiol [Tri-Sprintec (28)] 0.18/0.215/0.25 mg-35 mcg (28) tablet 1 tab PO QAM cholecalciferol (vitamin D3) 125 mcg (5,000 unit) capsule 125 mcg PO DAILY allopurinol 100 mg tablet 100 mg PO DAILY Qty: 30 3RF paroxetine HCl 20 mg tablet 20 mg PO QAM Discharge Orders: Discharge ED (Routine); Ordered 10/01/22 Ordered By: Otoniel Patel Referrals: Tiana Underwood FNP [Primary Care Provider] - 1-3 days Discharge Diet: Advance as tolerated Discharge Activity: Resume usual activity Patient Instructions: Acute Nausea and Vomiting (ED) Coding Level of Care Code ED Object Oriented Programmer for Chg Fwd Exam Comprehensive
[2022-10-01 23:11] LABS: Influenza A by IFA negative (Negative); Influenza B by IFA negative (Negative)
[2022-10-01 23:12] LABS: Basophils % 0.3 %; Eosinophils # 0.2 10^3/uL (0.0-0.8); Eosinophils % 1.2 %; Hemoglobin 12.2 g/dL (11.5-15.3); Lymphocytes # 2.4 10^3/uL (0.8-4.8); Lymphocytes % 16.7 %; Mean Corpuscular HGB Conc 32.1 g/dL (30.0-36.0); Mean Corpuscular Hemoglobin 25.3 pg (28.0-34.0); Mean Corpuscular Volume 78.8 fl (81-99); Mean Platelet Volume 10.1 fL (7.4-10.4); Monocytes # 0.7 10^3/uL (0.2-0.9); Monocytes % 4.9 %; Neutrophils % 76.4 %; Nucleated Red Blood Cells % 0 %; Platelet Count 371 10^3/cmm (130-400); Red Blood Count 4.82 10^6/uL (4.1-5.3); Red Cell Distribution Width 14.4 % (12.1-15.1); White Blood Count 14.3 10^3/uL (4.0-10.0)
[2022-10-01 23:15] VITALS: BP 164/87; PULSE 87; RESP 16; O2SAT 98
[2022-10-01] MEDS: sodium chloride 0.9% 1,000 ML 999 ML IV (23:18)
[2022-10-01] MEDS: ondansetron 2 mg/ML SDV 2 mL 4 MG IVP (23:18)
[2022-10-01 23:28] LABS: HCG, Serum Qual Negative (Negative)
[2022-10-01 23:30] LABS: Alanine Aminotransferase 13 U/L (0-33); Albumin Level 3.9 g/dL (3.5-5.2); Alkaline Phosphatase 74 U/L (35-105); Anion Gap 16.1 (5-19); Aspartate Amino Transferase 14 U/L (0-32); Blood Urea Nitrogen 17 mg/dL (6-20); Calcium 9.6 mg/dL (8.5-10.5); Carbon Dioxide 24 mmol/L (22-29); Chloride 104 mmol/L (98-107); Globulin 3.3 g/dL (1.3-4.6); Glomerular Filtration Rate 152.9 mL/min (90-130); Glucose 102 mg/dL (65-115); Lipase 16 U/L (13-60); Osmolality Calculated 292 mOsm/kg (285-295); Potassium 4.1 mmol/L (3.5-5.1); Sodium 140 mmol/L (136-145); Total Bilirubin 0.2 mg/dL (0.15-1.2); Total Protein 7.2 g/dL (6.6-8.7)
[2022-10-02] VITALS: BP 147/93; PULSE 95; RESP 16; O2SAT 96
[2022-10-02 00:44] VITALS: BP 151/82; PULSE 85; RESP 16; O2SAT 97
== END 2022-10-02 00:45 | disposition home or self-care (01) ==
PROVIDERS: Emergency Provider Emergency Medicine; PCP Nurse Practitioner Family
DX: R11.10 Vomiting, unspecified (principal)
CPT/HCPCS: 80053; 83690; 84703; 85025; 87804; 96361; 96374; 99284; J2405; J7030

== ENCOUNTER 2022-10-27 12:28 | Outpatient (CLI) | payer OTHER, SELFPAY ==
[2022-10-27 13:10] LABS: Basophils % 0.3 %; Eosinophils # 0.2 10^3/uL (0.0-0.8); Eosinophils % 2.4 %; Hematocrit 38.7 % (37.0-47.0); Lymphocytes # 2.7 10^3/uL (0.8-4.8); Lymphocytes % 35.3 %; Mean Corpuscular Hemoglobin 25.6 pg (28.0-34.0); Mean Corpuscular Volume 82.5 fl (81-99); Mean Platelet Volume 10.4 fL (7.4-10.4); Monocytes # 0.4 10^3/uL (0.2-0.9); Neutrophils # 4.34 10^3/uL (1.8-7.7); Neutrophils % 56.9 %; Nucleated Red Blood Cells % 0 %; Platelet Count 318 10^3/cmm (130-400); Red Blood Count 4.69 10^6/uL (4.1-5.3); Red Cell Distribution Width 16.1 % (12.1-15.1); White Blood Count 7.6 10^3/uL (4.0-10.0)
[2022-10-27 13:31] LABS: Ferritin 164 ng/mL (15-150); Iron 36 ug/dL (37-145); Percent Saturation 13.3 % (20-50); Total Iron Binding Capacity 269 mcg/dl; Unsaturated Iron Binding 233 ug/dL (112-347)
== END 2022-10-27 12:29 | disposition home or self-care (01) ==
PROVIDERS: PCP Nurse Practitioner Family; Visit Provider Internal Medicine Medical Oncology
DX: D50.9 Iron deficiency anemia, unspecified (principal)
CPT/HCPCS: 36415; 82728; 83540; 83550; 85025

== ENCOUNTER 2022-12-08 14:43 | Outpatient (CLI) | payer OTHER, SELFPAY ==
[2022-12-08 15:15] LABS: Basophils % 0.2 %; Eosinophils # 0.1 10^3/uL (0.0-0.8); Eosinophils % 1.4 %; Hemoglobin 12.4 g/dL (11.5-15.3); Lymphocytes % 33.4 %; Mean Corpuscular HGB Conc 31.8 g/dL (30.0-36.0); Mean Corpuscular Hemoglobin 25.9 pg (28.0-34.0); Mean Corpuscular Volume 81.6 fl (81-99); Mean Platelet Volume 10.5 fL (7.4-10.4); Monocytes # 0.3 10^3/uL (0.2-0.9); Monocytes % 3.6 %; Neutrophils # 5.51 10^3/uL (1.8-7.7); Neutrophils % 61.3 %; Nucleated Red Blood Cells % 0 %; Platelet Count 309 10^3/cmm (130-400); Red Blood Count 4.78 10^6/uL (4.1-5.3); Red Cell Distribution Width 14.6 % (12.1-15.1)
[2022-12-08 15:33] LABS: Alanine Aminotransferase 62 U/L (0-33); Albumin Level 3.7 g/dL (3.5-5.2); Alkaline Phosphatase 82 U/L (35-105); Aspartate Amino Transferase 35 U/L (0-32); Ferritin 208 ng/mL (15-150); Globulin 3.3 g/dL (1.3-4.6); Glomerular Filtration Rate 197.8 mL/min (90-130); Iron 29 ug/dL (37-145); Percent Saturation 11.4 % (20-50); Total Bilirubin 0.2 mg/dL (0.15-1.2); Total Iron Binding Capacity 253 mcg/dl; Unsaturated Iron Binding 224 ug/dL (112-347); Uric Acid 5.2 mg/dL (2.4-5.7)
== END 2022-12-08 14:44 | disposition home or self-care (01) ==
LOC: LAB 14:46
PROVIDERS: PCP Nurse Practitioner Family; Visit Provider Internal Medicine Rheumatology
DX: Z79.899 Other long term (current) drug therapy (principal); M10.9 Gout, unspecified; D50.9 Iron deficiency anemia, unspecified
CPT/HCPCS: 36415; 80076; 82565; 82728; 83540; 83550; 84550; 85025; 86140

== ENCOUNTER 2023-01-12 11:06 | Oncology outpatient (recurring) (ONCR) | payer OTHER, SELFPAY ==
[2023-01-12 12:26] LABS: Alanine Aminotransferase 24 U/L (0-33); Alkaline Phosphatase 70 U/L (35-105); Aspartate Amino Transferase 15 U/L (0-32); Globulin 3.1 g/dL (1.3-4.6); Total Bilirubin 0.2 mg/dL (0.15-1.2); Total Protein 7.1 g/dL (6.6-8.7)
[2023-01-12 13:35] LABS: Basophils % 0.3 %; Eosinophils # 0.2 10^3/uL (0.0-0.8); Hematocrit 38.3 % (37.0-47.0); Hemoglobin 11.9 g/dL (11.5-15.3); Lymphocytes # 3.1 10^3/uL (0.8-4.8); Lymphocytes % 31.3 %; Mean Corpuscular HGB Conc 31.1 g/dL (30.0-36.0); Mean Corpuscular Hemoglobin 26.2 pg (28.0-34.0); Mean Corpuscular Volume 84.2 fl (81-99); Mean Platelet Volume 10.9 fL (7.4-10.4); Monocytes # 0.4 10^3/uL (0.2-0.9); Monocytes % 4.5 %; Neutrophils # 6.04 10^3/uL (1.8-7.7); Neutrophils % 61.7 %; Nucleated Red Blood Cells % 0 %; Platelet Count 349 10^3/cmm (130-400); Red Blood Count 4.55 10^6/uL (4.1-5.3); Red Cell Distribution Width 14.4 % (12.1-15.1); White Blood Count 9.8 10^3/uL (4.0-10.0)
== END 2023-01-30 23:59 | disposition home or self-care (01) ==
PROVIDERS: Internal Medicine Rheumatology; PCP Nurse Practitioner Family; Visit Provider Internal Medicine Medical Oncology
DX: Z79.899 Other long term (current) drug therapy (principal)
CPT/HCPCS: 80076; 85025

== ENCOUNTER 2023-05-15 08:40 | Oncology outpatient (recurring) (ONCR) | payer OTHER, SELFPAY ==
[2023-05-15 08:43] VITALS: BP 144/82; PULSE 88; RESP 18; TEMP 36.2; O2SAT 97
[2023-05-15 09:05] LABS: Basophils % 0.3 %; Eosinophils # 0.1 10^3/uL (0.0-0.8); Eosinophils % 2.1 %; Hematocrit 37.7 % (37.0-47.0); Hemoglobin 12.1 g/dL (11.5-15.3); Lymphocytes # 2.4 10^3/uL (0.8-4.8); Lymphocytes % 36.8 %; Mean Corpuscular HGB Conc 32.1 g/dL (30.0-36.0); Mean Corpuscular Volume 80.9 fl (81-99); Monocytes # 0.3 10^3/uL (0.2-0.9); Neutrophils # 3.69 10^3/uL (1.8-7.7); Neutrophils % 55.6 %; Nucleated Red Blood Cells % 0 %; Platelet Count 311 10^3/cmm (130-400); Red Blood Count 4.66 10^6/uL (4.1-5.3); Red Cell Distribution Width 13.8 % (12.1-15.1); White Blood Count 6.6 10^3/uL (4.0-10.0)
[2023-05-15 09:25] LABS: Alanine Aminotransferase 35 U/L (0-33); Albumin Level 3.6 g/dL (3.5-5.2); Alkaline Phosphatase 81 U/L (35-105); Anion Gap 13.5 (5-19); Aspartate Amino Transferase 18 U/L (0-32); Blood Urea Nitrogen 12 mg/dL (6-20); Carbon Dioxide 25 mmol/L (22-29); Chloride 104 mmol/L (98-107); Ferritin 124 ng/mL (15-150); Globulin 3.1 g/dL (1.3-4.6); Glomerular Filtration Rate 152.9 mL/min (90-130); Glucose 103 mg/dL (65-115); Iron 46 ug/dL (37-145); Osmolality Calculated 286 mOsm/kg (285-295); Percent Saturation 18.5 % (20-50); Potassium 4.5 mmol/L (3.5-5.1); Sodium 138 mmol/L (136-145); Total Bilirubin 0.2 mg/dL (0.15-1.2); Total Iron Binding Capacity 248 mcg/dl; Total Protein 6.7 g/dL (6.6-8.7); Unsaturated Iron Binding 202 ug/dL (112-347)
== END 2023-06-01 23:59 | disposition home or self-care (01) ==
LOC: ONCMED 08:40
PROVIDERS: PCP Nurse Practitioner Family; Visit Provider Internal Medicine Medical Oncology
DX: D50.9 Iron deficiency anemia, unspecified (principal)
CPT/HCPCS: 36415; 80053; 82728; 83540; 83550; 85025

== ENCOUNTER 2023-06-17 13:22 | Oncology outpatient (recurring) (ONCR) | payer OTHER, SELFPAY | END 2023-07-02 23:59 | disposition home or self-care (01) | PROVIDERS: PCP Nurse Practitioner Family; Visit Provider Internal Medicine Medical Oncology | DX: Z53.9 Procedure and treatment not carried out, unspecified reason (principal) ==

== ENCOUNTER 2023-06-19 11:24 | Outpatient (CLI) | payer OTHER, SELFPAY ==
--- NOTE | 2023-06-19 11:43 | XRR_ITS ---
PROCEDURE INFORMATION: Exam: XR Bilateral Hips Exam date and time: 06/19/2023 12:08 PM Age: 22 years old Clinical indication: Hip pain; Left hip; Prior surgery; Surgery date: 6+ months; Surgery type: Right hip; Additional info: HX R hip surgery, new L hip pain TECHNIQUE: Imaging protocol: Radiologic exam of the bilateral hips. Views: 2 views of hips with pelvis when performed. COMPARISON: CT abdomen pelvis w con* [id number] 11/15/2020 5:56 AM FINDINGS: Bones/joints: A screw is again seen in the right hip. No fracture or other acute abnormality. No significant arthritic findings. Soft tissues: Unremarkable. XR/XR hip BI m 5V wo/w pel* [id number] IMPRESSION: Nonacute findings.
== END 2023-06-19 11:25 | disposition home or self-care (01) ==
PROVIDERS: PCP Family Medicine; Visit Provider Family Medicine
DX: M25.552 Pain in left hip (principal); Z87.768 Personal history of other specified (corrected) congenital malformations of integument, limbs and musculoskeletal system; Z98.890 Other specified postprocedural states
CPT/HCPCS: 73523; 82607; 84439; 84443; 84481

== ENCOUNTER → 2023-07-15 13:14 | Outpatient (BNVA) | payer OTHER, SELFPAY | PROVIDERS: PCP Family Medicine; Visit Provider Family Medicine | DX: E53.8 Deficiency of other specified B group vitamins (principal) | CPT/HCPCS: 82607 ==

== ENCOUNTER 2023-07-30 09:30 | Oncology outpatient (recurring) (ONCR) | payer OTHER, SELFPAY ==
[2023-07-23 10:00] VITALS: BP 127/73; PULSE 58; RESP 16; TEMP 36.3; O2SAT 98
[2023-07-23] MEDS: sodium chloride 0.9% 250 ML 75 ML IV (11:18)
[2023-07-23] MEDS: ondansetron 2 mg/ML SDV 2 mL 8 MG IVP (11:18)
[2023-07-23] MEDS: ferric carboxy (IVPB) 750 MG in sodium chloride 0.9% (100 ml) 100 ML 345 MG IV (11:26)
[2023-07-23 12:03] VITALS: BP 114/74; PULSE 58; RESP 17; TEMP 36.2; O2SAT 99
--- NOTE | 2023-07-30 15:57 | PC.NURSE ---
Pt in infusion suite for second dose of injectafer. Per Dr. Chen notes, pt was to only receive one dose of injectafer. Explained situation to pt, pt is to return in 3 weeks for OV. JW
== END 2023-08-01 23:59 | disposition home or self-care (01) ==
PROVIDERS: PCP Family Medicine; Visit Provider Internal Medicine Medical Oncology
DX: Z53.9 Procedure and treatment not carried out, unspecified reason (principal)
CPT/HCPCS: 96365; 96375; J1439; J2405; J7050

== ENCOUNTER 2023-08-20 09:49 | Oncology outpatient (recurring) (ONCR) | payer OTHER, SELFPAY ==
[2023-08-20 10:30] LABS: Basophils % 0.3 %; Eosinophils # 0.2 10^3/uL (0.0-0.8); Eosinophils % 3.1 %; Hematocrit 37.6 % (36-47); Lymphocytes # 2.3 10^3/uL (0.8-4.8); Lymphocytes % 37.6 %; Mean Corpuscular HGB Conc 31.9 g/dL (30-55); Mean Corpuscular Hemoglobin 26.7 pg (27-33); Mean Corpuscular Volume 83.7 fl (85-98); Mean Platelet Volume 9.7 fL (7.4-10.4); Monocytes # 0.3 10^3/uL (0.2-0.9); Monocytes % 5.5 %; Neutrophils % 53.2 %; Nucleated Red Blood Cells % 0 %; Platelet Count 287 10^3/cmm (157-399); Red Blood Count 4.49 10^6/uL (3.85-5.65); Red Cell Distribution Width 14.7 % (12.1-15.1)
[2023-08-20 10:51] LABS: Ferritin 329 ng/mL (15-150); Iron 47 ug/dL (37-145); Percent Saturation 19.5 % (20-50); Total Iron Binding Capacity 240 mcg/dl; Unsaturated Iron Binding 193 ug/dL (112-347)
[2023-08-20 11:06] LABS: 25 Hydroxy Vitamin D 38 ng/mL (30-100)
== END 2023-09-01 23:59 | disposition home or self-care (01) ==
PROVIDERS: PCP Family Medicine; Visit Provider Internal Medicine Medical Oncology
DX: E55.9 Vitamin D deficiency, unspecified; E61.1 Iron deficiency
CPT/HCPCS: 36415; 82306; 82728; 83540; 83550; 85025

== ENCOUNTER → 2023-10-12 17:13 | Outpatient (BNVA) | payer OTHER, SELFPAY | PROVIDERS: PCP Family Medicine; Visit Provider Family Medicine | DX: J02.9 Acute pharyngitis, unspecified (principal) | CPT/HCPCS: 87880 ==

== ENCOUNTER 2023-11-16 09:01 | Oncology outpatient (recurring) (ONCR) | payer OTHER, SELFPAY ==
[2023-11-16 09:26] LABS: Basophils % 0.2 %; Eosinophils # 0.2 10^3/uL (0.0-0.8); Eosinophils % 2.8 %; Mean Corpuscular HGB Conc 32.6 g/dL (30-55); Mean Corpuscular Hemoglobin 27.6 pg (27-33); Mean Corpuscular Volume 84.6 fl (85-98); Monocytes # 0.3 10^3/uL (0.2-0.9); Monocytes % 3.8 %; Neutrophils # 4.99 10^3/uL (1.8-7.7); Nucleated Red Blood Cells % 0 %; Platelet Count 306 10^3/cmm (157-399); Red Blood Count 4.49 10^6/uL (3.85-5.65); Red Cell Distribution Width 13.9 % (12.1-15.1); White Blood Count 8.62 10^3/uL (3.29-11.43)
[2023-11-16 10:54] LABS: Ferritin 187 ng/mL (15-150); Iron 56 ug/dL (37-145); Percent Saturation 19.8 % (20-50); Total Iron Binding Capacity 282 mcg/dl; Unsaturated Iron Binding 226 ug/dL (112-347)
== END 2023-12-02 23:59 | disposition home or self-care (01) ==
LOC: ONCMED 09:02
PROVIDERS: PCP Family Medicine; Visit Provider Internal Medicine Medical Oncology
DX: E61.1 Iron deficiency (principal)
CPT/HCPCS: 36415; 82728; 83540; 83550; 85025

== ENCOUNTER → 2024-03-11 12:40 | Outpatient (BNVA) | payer OTHER, SELFPAY | PROVIDERS: PCP Family Medicine; Visit Provider Family Medicine | DX: D64.9 Anemia, unspecified (principal); E55.9 Vitamin D deficiency, unspecified | CPT/HCPCS: 82306; 85025 ==

== ENCOUNTER → 2024-05-02 15:38 | Outpatient (BNVA) | payer OTHER, SELFPAY | PROVIDERS: PCP Family Medicine; Visit Provider Family Medicine | DX: R50.9 Fever, unspecified (principal); R10.9 Unspecified abdominal pain | CPT/HCPCS: 80053; 81003; 85025 ==

== ENCOUNTER 2024-05-03 09:13 | Emergency (ER) | payer OTHER, SELFPAY ==
[2024-05-03 09:20] VITALS: BP 149/119; PULSE 104; RESP 18; TEMP 36.8; O2SAT 97; BMI 43.9
--- NOTE | 2024-05-03 09:23 | W.ED.ABDPA2 ---
HPI - Abdominal Pain General: Chief Complaint: Abdominal Pain Stated Complaint: abd pain, Fever Time Seen by Provider: 05/03/24 09:15 Source: patient and family Mode of arrival: ambulatory Limitations: no limitations History of Present Illness: Patient is a 23-year-old female presents to ED today with a complaint of abdominal pain, diarrhea, and fevers. She states symptoms initially began approximately 4 days ago and has worsened since onset. She states she is having approximately 5 episodes of nonbloody diarrhea daily. She states she feels nauseous but has not had any episodes of emesis. She states after eating it goes right through me and then she will have a diarrheal stool. She is reporting diffuse abdominal pain worse on the left side. Patient was seen by her primary care provider yesterday with a concern for possible colitis and placed on Cipro and Flagyl. Labs at that visit were unremarkable. Patient states she has been running fevers as high as 104. She states her fever this morning was 101 when she woke up. Denies sick contacts. Denies poor food exposures. Previous abdominal surgeries include a cholecystectomy. MD elicited complaint: abdominal pain Pertinent past history: none Onset (ago): day(s) Pain Consistency: constant Location: Diffuse, LUQ and LLQ Severity: severe Quality: cramping and sharp Radiation: none Migration to: no migration Exacerbating factors: eating Relieving factors: nothing Associated Symptoms: Reports diarrhea, fever(s) and nausea; Denies chills, constipation, dysuria, hematochezia, hematemesis, melena and vomiting Treatments prior to arrival: other (antibiotics) Related Data: Patient : No Review of Systems Const: Reports: fever(s); Denies: chills, body aches, fatigue or malaise Card: Denies: chest pain Resp: Denies: dyspnea GI: Reports: abdominal pain, nausea and diarrhea; Denies: vomiting, hematemesis, constipation, hematochezia or melena : Denies: flank pain, difficulty voiding, dysuria, urinary frequency, urinary urgency or urinary hesitancy Musc: Denies: neck pain, back pain, extremity pain or joint pain Skin/Breast: Denies: rash Neuro: Denies: headache(s), numbness in extremities, weakness in extremities, sensory changes or dizziness [facility] ED PFSH: Medical History FLORENTINO (obstructive sleep apnea) Vitamin D deficiency Iron deficiency anemia DUB (dysfunctional uterine bleeding) Gout, arthritis Anxiety Surgical History History of cholecystectomy History of hip surgery pin in right hip Family History Other CAD (coronary artery disease) Diabetes Family history of premature coronary artery disease Hypertension Lung disease Stroke Denies family history of Rheumatoid arthritis Chronic kidney disease (CKD) Systemic lupus erythematosus (SLE) in adult Cancer Social History Smoking and tobacco/nicotine status: never used tobacco/nicotine Alcohol intake: never Substance/Drug Use: never Lives independently: Yes Household members: family and children Marital status: Single Number of children: 1 Current occupational status: employed 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 [employer] Special annette needs: No Agree to transfusion: Yes Physical Exam Const: COMMON NORMALS: no acute distress, patient oriented x3, no limitations, alert and well nourished GENERAL APPEARANCE: cooperative NUTRITIONAL APPEARANCE: obese morbidly obese ORIENTATION/CONSCIOUSNESS: Yes awake, Yes oriented to person, Yes oriented to place and Yes oriented to time Eye: COMMON NORMALS: no scleral icterus Resp: COMMON NORMALS: normal respiratory effort and clear to auscultation bilaterally AUSCULTATION: clear to auscultation bilaterally Cardio: COMMON NORMALS: regular rhythm RATE: tachycardic RHYTHM: regular rhythm GI: COMMON NORMALS: Normal to inspection, nondistended, normoactive bowel sounds present, Soft to palpation and no masses INSPECTION: Yes normal to inspection AUSCULTATION: Yes normoactive bowel sounds PALPATION: Yes Soft to palpation, Yes Tenderness to palpation present (GI) (throughout abdomen), No Guarding due to palpation present (GI) and No Rigid due to palpation : COMMON NORMALS: Yes no CVA tenderness BLADDER/KIDNEY EXAM: Yes no CVA tenderness Back/Pelvis: COMMON NORMALS: no CVA tenderness and thoracic and lumbar spine normal to inspection Extremity: GENERAL: Yes normal exam except as noted Neuro: LAW COMA SCALE: document [facility] findings Law coma scale eye opening: Spontaneous Law coma scale verbal response: Orientated [place] coma scale motor response: Obey commands Lwa coma scale total score: 15 COMMON NORMALS: patient oriented x3, moves all extremities, no focal motor deficits and no sensory deficits noted SENSORIUM/ORIENTATION: Yes alert, Yes oriented to person, Yes oriented to place and Yes oriented to time Skin: COMMON NORMALS: no rashes or lesions noted GENERAL SKIN EXAM: no rashes or lesions noted Course Vital Signs: Vital signs: Vital Signs Temperature 98.3 F 05/03/24 09:20 Pulse Rate 73 05/03/24 12:00 Respiratory Rate 18 05/03/24 12:00 Blood Pressure 135/72 05/03/24 12:00 Pulse Oximetry 96 05/03/24 12:00 MDM - Abdominal Pain Medical Decision Making Patient is a 23-year-old female here for diarrhea, abdominal pain, and fevers. Vital signs are stable. Her blood work overall is unremarkable and fairly unchanged when compared to blood drawn through her PCP yesterday. Her UA does look significant for infection with 3+ blood, 2+ leukocytes, and over 100 WBCs. She is not having any flank pain. CT scan showing multiple incidental findings. She has multiple follicles on her ovaries. Radiologist commented on possible hydrosalpinx or other process. I think this is unrelated to her symptoms today. Patient is not sexually active/no concerns for PID. She has multiple lymph nodes that radiologist commented on that were comparable to 2020. She has findings possibly related to a nonspecific enteritis. They mentioned on the possibility of abdominal adhesions. No obstructive gas pattern. At this point patient is already and placed on Cipro and Flagyl from her PCP. This will cover for her acute cystitis. She has no flank pain or evidence for pyelo on her CT scan. Will give her pain/nausea meds she can use as needed at home. Strict return ED precautions given. She was not able to give a stool sample here during her four hour stay. Differential Diagnosis Likely abdominal pain, diverticulitis, gastroenteritis and small bowel obstruction Medical Records I reviewed the patient's medical records. Lab Data I reviewed the patient's lab results. 05/03/24 09:55 05/03/24 09:55 Labs/Radiology: Radiology Impressions Abdomen/Pelvis CT 05/03/24 09:30 IMPRESSION: 1. Probable follicles ovaries, right greater than left, though component of hydrosalpinx or other process not excluded. 2. Numerous small retroperitoneal, mesenteric lymph nodes especially extending toward right lower quadrant, pericecal appearing about the same to slightly progressed compared to 11/15/2020. 3. Mild gas and fluid of the colon which appears mostly decompressed, especially distal colon. Mild wall thickening versus lack of distension rectosigmoid colon. Correlate for nonspecific enteritis. 4. Possible angulation, tethering of small bowel mid abdomen, possible adhesions. Bowel pattern appears nonobstructive. 5. Please see body of report for additional findings. COMMENTS: Consistent with the [employer]'s Incidental Findings Committee white paper (J Am Jhony Radiol 2018): Any incidental renal lesion less than 1 cm or classified as too small to characterize, or any incidental cystic renal lesion characterized as simple-appearing, is likely benign. No follow-up imaging is recommended for these lesions per consensus recommendations based on imaging criteria. Laboratory Results WBC 8.83 10^3/uL (3.29-11.43) 05/03/24 09:55 RBC 5.25 10^6/uL (3.85-5.65) 05/03/24 09:55 Hgb 13.70 g/dL (11.27-16.99) 05/03/24 09:55 Hct 41.6 % (36-47) 05/03/24 09:55 MCV 79.2 fl (85-98) L 05/03/24 09:55 MCH 26.1 pg (27-33) L 05/03/24 09:55 MCHC 32.9 g/dL (30-55) 05/03/24 09:55 RDW 13.5 % (12.1-15.1) 05/03/24 09:55 Plt Count 313 10^3/cmm (157-399) 05/03/24 09:55 MPV 10.1 fL (7.4-10.4) 05/03/24 09:55 Neut % (Auto) 75.1 % 05/03/24 09:55 Lymph % (Auto) 18.3 % 05/03/24 09:55 [place] % (Auto) 6.0 % 05/03/24 09:55 Eos % (Auto) 0.2 % 05/03/24 09:55 Baso % (Auto) 0.2 % 05/03/24 09:55 Neut # (Auto) 6.62 10^3/uL (1.8-7.7) 05/03/24 09:55 Lymph # (Auto) 1.6 10^3/uL (0.8-4.8) 05/03/24 09:55 [place] # (Auto) 0.5 10^3/uL (0.2-0.9) 05/03/24 09:55 Eos # (Auto) 0.0 10^3/uL (0.0-0.8) 05/03/24 09:55 Baso # (Auto) 0.0 10^3/uL (0.0-0.1) 05/03/24 09:55 Nucleated RBC % (auto) 0 % 05/03/24 09:55 Nucleated RBCs # 0.0 /100WBC 05/03/24 09:55 Sodium 134 mmol/L (136-145) L 05/03/24 09:55 Potassium 3.9 mmol/L (3.5-5.1) 05/03/24 09:55 Chloride 100 mmol/L (98-107) 05/03/24 09:55 Carbon Dioxide 20 mmol/L (22-29) L 05/03/24 09:55 Anion Gap 17.9 (5-19) 05/03/24 09:55 BUN 12 mg/dL (6-20) 05/03/24 09:55 Creatinine 0.7 mg/dL (0.5-0.9) 05/03/24 09:55 GFR Calculation 102.8 mL/min (90-130) 05/03/24 09:55 Glucose 118 mg/dL (65-115) H 05/03/24 09:55 Calculated Osmolality 279 mOsm/kg (285-295) L 05/03/24 09:55 Calcium 9.2 mg/dL (8.5-10.5) 05/03/24 09:55 Total Bilirubin 0.2 mg/dL (0.15-1.2) 05/03/24 09:55 AST 13 U/L (0-32) 05/03/24 09:55 ALT 18 U/L (0-33) 05/03/24 09:55 Alkaline Phosphatase 69 U/L (35-105) 05/03/24 09:55 Total Protein 7.3 g/dL (6.6-8.7) 05/03/24 09:55 Albumin 4.1 g/dL (3.5-5.2) 05/03/24 09:55 Globulin 3.2 g/dL (1.3-4.6) 05/03/24 09:55 Lipase 32 U/L (13-60) 05/03/24 09:55 HCG, Qual Negative (Negative) 05/03/24 09:55 Urine Color Yellow (Yellow) 05/03/24 09:55 Urine Appearance Slightly cloudy (CLEAR) 05/03/24 09:55 Urine pH 5 (5-7) 05/03/24 09:55 Ur Specific [place] 1.020 (1.005-1.030) 05/03/24 09:55 Urine Protein Trace (Negative) 05/03/24 09:55 Urine Glucose (UA) 3+ (Normal) H 05/03/24 09:55 Urine Ketones Negative (Negative) 05/03/24 09:55 Urine Blood 3+ (Negative) H 05/03/24 09:55 Urine Nitrate Negative (Negative) 05/03/24 09:55 Urine Bilirubin Neg (Negative) 05/03/24 09:55 Urine Urobilinogen Neg mg/dL (Negative) 05/03/24 09:55 Ur Leukocyte Esterase 2+ (Negative) H 05/03/24 09:55 Urine RBC 0-4 /hpf (0-2) H 05/03/24 09:55 Urine WBC >100 /hpf (0-5) H 05/03/24 09:55 Ur Squamous Epith Cells 10-15 /hpf (0-5) H 05/03/24 09:55 Amorphous Sediment Not Reportable 05/03/24 09:55 Urine Bacteria 1+ /hpf (NONE) H 05/03/24 09:55 Urine Mucus Trace /hpf 05/03/24 09:55 All radiology interpretation(s) finalized by discharge Discharge Plan Discharge Patient Disposition: Home Clinical Impression: Enteritis Acute cystitis Qualifiers: Hematuria presence: with hematuria Qualified Code(s): N30.01 - Acute cystitis with hematuria Condition: Stable Prescriptions: New hydrocodone-acetaminophen 5-325 mg tablet 1 tab PO Q6H PRN (Reason: pain) Qty: 14 0RF ondansetron 4 mg tablet,disintegrating 4 mg PO Q8H PRN (Reason: nausea and vomiting) Qty: 14 0RF No Action cholecalciferol (vitamin D3) 125 mcg (5,000 unit) capsule 125 mcg PO DAILY paroxetine HCl 20 mg tablet 20 mg PO DAILY Qty: 90 1RF norgestimate-ethinyl estradiol [Tri-Sprintec (28)] 0.18/0.215/0.25 mg-35 mcg (28) tablet 1 tab PO QAM Qty: 84 1RF cyanocobalamin (vitamin B-12) 100 mcg tablet 100 mcg PO DAILY Qty: 90 1RF ciprofloxacin HCl 750 mg tablet 750 mg PO Q12H 7 Days Qty: 14 0RF metronidazole 500 mg tablet 500 mg PO Q8H 7 Days Qty: 21 0RF hydrocortisone 2.5 % lotion 1 applic TOPICAL BID PRN (Reason: Skin Irritation) mupirocin 2 % ointment 1 applic TOPICAL BID PRN (Reason: Skin Irritation) Discharge Orders: Discharge ED (Routine); Ordered 05/03/24 Ordered By: Anuradha Gatn Referrals: Tika Umaña MD [Primary Care Provider] - Patient Instructions: Opioid Safety, Pain Management Activity Restrictions/Additional Instructions: As we discussed please continue your 2 antibiotics. I will prescribe you pain/nausea medications that you may use as needed. I recommend a bland liquid diet over the next 48 hours and slowly advance as tolerated. He need to return to the emergency department for worsening or uncontrollable fevers, worsening abdominal pain, bloody diarrhea, repetitive episodes of vomiting, generally feeling worse or unwell, flank pain, or any other concerns you may have. I hope you begin to feel better soon. 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
--- NOTE | 2024-05-03 09:30 | CTR_ITS ---
PROCEDURE INFORMATION: Exam: CT Abdomen And Pelvis With Contrast Exam date and time: 05/03/2024 10:39 AM Age: 23 years old Clinical indication: Abdominal pain; Localized; Left lower quadrant (llq); Prior surgery; Surgery date: 6+ months; Surgery type: Gb; Additional info: Abdominal pain, fevers, diarrhea TECHNIQUE: Imaging protocol: Computed tomography of the abdomen and pelvis with contrast. Radiation optimization: All CT scans at this facility use at least one of these dose optimization techniques: automated exposure control; mA and/or kV adjustment per patient size (includes targeted exams where dose is matched to clinical indication); or iterative reconstruction. Contrast material: OMNI 350; Contrast volume: 100 ml; Contrast route: INTRAVENOUS (IV); COMPARISON: CT abdomen pelvis w con* [id number] 11/15/2020 5:56 AM RADIATION DOSE METRICS: Total DLP (mGy-cm): 1313.83 FINDINGS: Limitations: Some images degraded by artifact including artifact from metallic screw/pin right hip region. Lungs: Visualized portions lung bases included appear clear bilaterally. Liver: Liver unremarkable. Gallbladder and biliary ducts: Clips project gallbladder fossa. Minimal prominence common duct, main, central intrahepatic bile ducts, possibly related to prior cholecystectomy. Pancreas: Pancreas unremarkable. Spleen: Spleen unremarkable. Adrenal glands: Adrenals unremarkable. Kidneys and ureters: Tiny hypodensities kidneys, possibly cysts, though too small to accurately characterize. Stomach and bowel: Mild gas and fluid of the colon which appears mostly decompressed, especially distal colon. Mild wall thickening versus lack of distension rectosigmoid colon. Possible angulation, tethering of small bowel mid abdomen, possible adhesions. Bowel pattern appears nonobstructive. Stomach appears mostly empty. Appendix: No acute appendicitis seen. Stomach appears mostly empty. Intraperitoneal space: No free intraperitoneal air and no free abdominal or pelvic fluid collections seen. Vasculature: No aneurysm seen of abdominal aorta. Lymph nodes: Numerous small retroperitoneal, mesenteric lymph nodes especially extending toward right lower quadrant, pericecal appearing about the same to slightly progressed compared to 11/15/2020. Urinary bladder: Urinary bladder appears mostly empty. Reproductive: Uterus appears anteflexed. Probable follicles ovaries, right greater than left, though component of hydrosalpinx or other process not excluded. Bones/joints: Metallic screw/pin projects right femoral neck/head similar to prior study. Curvature, mild endplate irregularities spine. Anterior, ventral tilting of coccyx similar to prior study. Soft tissues: Unremarkable. Other findings: Tiny fat containing umbilical/paraumbilical hernia. CT/CT abdomen pelvis w con* [id number] IMPRESSION: 1. Probable follicles ovaries, right greater than left, though component of hydrosalpinx or other process not excluded. 2. Numerous small retroperitoneal, mesenteric lymph nodes especially extending toward right lower quadrant, pericecal appearing about the same to slightly progressed compared to 11/15/2020. 3. Mild gas and fluid of the colon which appears mostly decompressed, especially distal colon. Mild wall thickening versus lack of distension rectosigmoid colon. Correlate for nonspecific enteritis. 4. Possible angulation, tethering of small bowel mid abdomen, possible adhesions. Bowel pattern appears nonobstructive. 5. Please see body of report for additional findings. COMMENTS: Consistent with the [place] [employer] [employer]'s Incidental Findings Committee white paper (J Am Jhony Radiol 2018): Any incidental renal lesion less than 1 cm or classified as too small to characterize, or any incidental cystic renal lesion characterized as simple-appearing, is likely benign. No follow-up imaging is recommended for these lesions per consensus recommendations based on imaging criteria.
[2024-05-03 09:50] VITALS: RESP 24; O2SAT 97
[2024-05-03] MEDS: sodium chloride 0.9% 1,000 ML 999 ML IV (09:50)
[2024-05-03] MEDS: morphine 4 mg/mL SDV 1 mL IVP (09:50)
[2024-05-03] MEDS: ondansetron 2 mg/ML SDV 2 mL 4 MG IVP (09:51)
[2024-05-03 10:06] LABS: Basophils % 0.2 %; Eosinophils % 0.2 %; Hematocrit 41.6 % (36-47); Lymphocytes # 1.6 10^3/uL (0.8-4.8); Lymphocytes % 18.3 %; Mean Corpuscular HGB Conc 32.9 g/dL (30-55); Mean Corpuscular Hemoglobin 26.1 pg (27-33); Mean Corpuscular Volume 79.2 fl (85-98); Mean Platelet Volume 10.1 fL (7.4-10.4); Monocytes # 0.5 10^3/uL (0.2-0.9); Neutrophils # 6.62 10^3/uL (1.8-7.7); Neutrophils % 75.1 %; Nucleated Red Blood Cells % 0 %; Platelet Count 313 10^3/cmm (157-399); Red Blood Count 5.25 10^6/uL (3.85-5.65); Red Cell Distribution Width 13.5 % (12.1-15.1); White Blood Count 8.83 10^3/uL (3.29-11.43)
[2024-05-03 10:19] LABS: HCG, Serum Qual Negative (Negative)
--- NOTE | 2024-05-03 10:23 | PC.PHAR ---
PT TOOK ONLY ANTIBIOTICS THIS MORNING AND NO OTHER MEDS.
[2024-05-03 10:24] LABS: Alanine Aminotransferase 18 U/L (0-33); Albumin Level 4.1 g/dL (3.5-5.2); Alkaline Phosphatase 69 U/L (35-105); Anion Gap 17.9 (5-19); Aspartate Amino Transferase 13 U/L (0-32); Blood Urea Nitrogen 12 mg/dL (6-20); Calcium 9.2 mg/dL (8.5-10.5); Carbon Dioxide 20 mmol/L (22-29); Chloride 100 mmol/L (98-107); Creatinine Clr Calc Pharmacy 172.0484; Globulin 3.2 g/dL (1.3-4.6); Glomerular Filtration Rate 102.8 mL/min (90-130); Glucose 118 mg/dL (65-115); Lipase 32 U/L (13-60); Osmolality Calculated 279 mOsm/kg (285-295); Potassium 3.9 mmol/L (3.5-5.1); Sodium 134 mmol/L (136-145); Total Bilirubin 0.2 mg/dL (0.15-1.2); Total Protein 7.3 g/dL (6.6-8.7)
[2024-05-03 10:29] LABS: Blood Urine 3+ (Negative); Glucose Urine UA 3+ (Normal); Ketones Urine Negative (Negative); Protein Urine Trace (Negative); Urine Appearance Slightly Cloudy (CLEAR); Urine Color Yellow (Yellow); pH Urine 5 (5-7)
[2024-05-03 10:30] LABS: Add Urine Microscopic? YES; Bilirubin Urine Neg (Negative); Leukocyte Esterase Urine 2+ (Negative); Nitrate Urine Negative (Negative); Urobilinogen Urine Neg (Negative)
[2024-05-03 10:31] LABS: Bacteria Urine 1+ /hpf; RBC Urine 0-4 /hpf (0-2); WBC Urine >100 /hpf (0-5)
[2024-05-03 10:32] LABS: Add Urine Culture? No; Mucus Urine TRACE /hpf
[2024-05-03] MEDS: iohexol 350 mg/mL 500 mL Btl (per mL) IV (10:42)
[2024-05-03 10:44] VITALS: BP 160/86; PULSE 74; RESP 16; O2SAT 99
[2024-05-03 10:55] VITALS: RESP 16; O2SAT 98
[2024-05-03] MEDS: HYDROmorphone 1 mg/mL INJ 1 mL 0.5 MG IVP (10:55)
[2024-05-03 12:00] VITALS: BP 135/72; PULSE 73; RESP 18; O2SAT 96
[2024-05-03 13:05] VITALS: BP 137/90; PULSE 90; O2SAT 96
== END 2024-05-03 13:07 | disposition home or self-care (01) ==
PROVIDERS: Emergency Provider Physician Assistant; PCP Family Medicine
DX: N30.01 Acute cystitis with hematuria (principal); K52.9 Noninfective gastroenteritis and colitis, unspecified
CPT/HCPCS: 74177; 80053; 81001; 83690; 84703; 85025; 96374; 96375; 99285; J1170; J2270; J2405; J7030; Q9967

== ENCOUNTER → 2024-07-20 16:11 | Outpatient (BNVA) | payer OTHER, SELFPAY | PROVIDERS: PCP Family Medicine; Visit Provider Nurse Practitioner | DX: J02.9 Acute pharyngitis, unspecified (principal) | CPT/HCPCS: 87880 ==

== ENCOUNTER → 2024-08-02 14:55 | Outpatient (BNVA) | payer OTHER, SELFPAY | PROVIDERS: PCP Family Medicine; Visit Provider Family Medicine | DX: Z12.4 Encounter for screening for malignant neoplasm of cervix (principal) | CPT/HCPCS: 88175 ==

== ENCOUNTER → 2024-11-08 18:16 | Outpatient (BNVA) | payer BC, SELFPAY | PROVIDERS: PCP Family Medicine; Visit Provider Registered Nurse Neonatal Intensive Care | DX: J02.9 Acute pharyngitis, unspecified (principal); J06.9 Acute upper respiratory infection, unspecified | CPT/HCPCS: 87880 ==

== ENCOUNTER → 2024-11-09 09:02 | Outpatient (BNVA) | payer OTHER, SELFPAY | PROVIDERS: PCP Family Medicine; Visit Provider Family Medicine | DX: R50.9 Fever, unspecified (principal) | CPT/HCPCS: 87400; 87426 ==

== ENCOUNTER 2024-11-12 12:01 | Emergency (ER) | payer OTHER, SELFPAY ==
[2024-11-12 12:08] VITALS: BP 156/110; PULSE 104; RESP 16; TEMP 36.7; O2SAT 94; BMI 47.9
--- NOTE | 2024-11-12 12:24 | XRR_ITS ---
PROCEDURE INFORMATION: Exam: XR Chest Exam date and time: 11/12/2024 2:42 PM Age: 24 years old Clinical indication: Patient HX: Cough; SOB; Fever TECHNIQUE: Imaging protocol: Radiologic exam of the chest. Views: 1 view. COMPARISON: CR XR chest 1V portable [id number] 11/15/2020 4:06 AM FINDINGS: Tubes, catheters and devices: None. Lungs: Lung volumes are decreased. Left-sided pulmonary linear interstitial opacities identified within lower lung. The lungs appear otherwise clear. Pleural spaces: No pleural effusion. No pneumothorax. Heart/Mediastinum: Mediastinum and lukasz appear unremarkable. Bones/joints: No acute bony abnormality identified. Soft tissues: This study is limited by patient's body habitus. XR/XR chest 1V portable [id number] IMPRESSION: Pulmonary atelectasis or acute infiltrates within left lower chest.
[2024-11-12 13:31] LABS: Basophils % 0.3 %; Eosinophils # 0.1 10^3/uL (0.0-0.8); Eosinophils % 1.6 %; Hematocrit 39.3 % (36-47); Lymphocytes # 2.1 10^3/uL (0.8-4.8); Lymphocytes % 28.3 %; Mean Corpuscular HGB Conc 31.3 g/dL (30-55); Mean Corpuscular Hemoglobin 25.3 pg (27-33); Mean Corpuscular Volume 80.9 fl (85-98); Mean Platelet Volume 9.9 fL (7.4-10.4); Monocytes # 0.5 10^3/uL (0.2-0.9); Monocytes % 6.3 %; Neutrophils # 4.69 10^3/uL (1.8-7.7); Neutrophils % 63.2 %; Nucleated Red Blood Cells % 0 %; Platelet Count 302 10^3/cmm (157-399); Red Blood Count 4.86 10^6/uL (3.85-5.65); Red Cell Distribution Width 14.3 % (12.1-15.1); White Blood Count 7.42 10^3/uL (3.29-11.43)
[2024-11-12 13:59] LABS: Alanine Aminotransferase 23 U/L (0-33); Albumin Level 3.8 g/dL (3.5-5.2); Alkaline Phosphatase 69 U/L (35-105); Anion Gap 15.5 (5-19); Aspartate Amino Transferase 22 U/L (0-32); Blood Urea Nitrogen 7 mg/dL (6-20); Calcium 9.7 mg/dL (8.5-10.5); Carbon Dioxide 24 mmol/L (22-29); Chloride 100 mmol/L (98-107); Creatinine Clr Calc Pharmacy 251.1078; Globulin 3.7 g/dL (1.3-4.6); Glomerular Filtration Rate 150.3 mL/min (90-130); Glucose 96 mg/dL (65-115); Osmolality Calculated 278 mOsm/kg (285-295); Potassium 4.5 mmol/L (3.5-5.1); Sodium 135 mmol/L (136-145); Total Bilirubin 0.2 mg/dL (0.15-1.2); Total Protein 7.5 g/dL (6.6-8.7)
[2024-11-12 14:47] LABS: Bilirubin Urine Negative (Negative); Blood Urine Trace (Negative); Glucose Urine UA Negative (Normal); Ketones Urine Negative (Negative); Leukocyte Esterase Urine 2+ (Negative); Nitrate Urine Negative (Negative); Protein Urine Trace (Negative); Specific Gravity, Urine 1.022 (1.005-1.030); Urine Appearance Cloudy (CLEAR); Urine Color Yellow (Yellow); pH Urine 5.5 (5-7)
[2024-11-12 14:53] LABS: Add Urine Microscopic? YES; Bacteria Urine 4+ /hpf; Hyaline Casts Urine 3.71 /lpf; Squamous Epithelial Cell Urine 21-50 /hpf (0-5); WBC Urine 51-100 /hpf (0-5)
[2024-11-12 15:35] LABS: Adenovirus Detected (NOT DETECT); Chlamydia Pneumoniae Not Detected (NOT DETECT); Coronavirus 229E,HKU1,NL63,OC4 Not Detected (NOT DETECT); Human Metapneumovirus Not Detected (NOT DETECT); Human Rhinovirus/Enterovirus Not Detected (NOT DETECT); Influenza A Not Detected (NOT DETECT); Influenza A H1 Not Detected (NOT DETECT); Influenza A H1-2009 Not Detected (NOT DETECT); Influenza A H3 Not Detected (NOT DETECT); Influenza B Not Detected (NOT DETECT); Mycoplasma Pneumoniae Not Detected (NOT DETECT); Parainfluenza Virus Type 1 Not Detected (NOT DETECT); Parainfluenza Virus Type 2 Not Detected (NOT DETECT); Parainfluenza Virus Type 3 Not Detected (NOT DETECT); Parainfluenza Virus Type 4 Not Detected (NOT DETECT); Respiratory Syncytial Virus A Not Detected (NOT DETECT); Respiratory Syncytial Virus B Not Detected (NOT DETECT); SARS-COV-2 Not Detected (NOT DETECT)
[2024-11-12] MEDS: doxycycline 100 mg Tablet PO (15:48)
[2024-11-12 16:03] LABS: Rapid Strep A Test Negative (Negative)
--- NOTE | 2024-11-12 16:22 | W.ED.FEVER ---
HPI - Fever General: Chief Complaint: Fever Stated Complaint: fever History of Present Illness: Patient is a 24-year-old female that presents to the emergency department with complaints of sore throat, body aches, and fever. Patient reports fevers have been ranging between 102 and 104. She has been taking ibuprofen and Tylenol but fevers persist. Patient denies any chest pain or shortness of breath. Does report cough and congestion as well. Related Data Home Medications Medication Instructions Recorded Confirmed cholecalciferol (vitamin D3) 125 125 mcg PO DAILY 08/22/22 11/09/24 mcg (5,000 unit) capsule Previous Rx's Medication Instructions Recorded fluticasone propionate 50 2 spray intranasal BID #16 mL 10/19/24 mcg/actuation nasal spray,suspension (Flonase Allergy Relief) levocetirizine 5 mg tablet 5 mg PO DAILY #14 tabs 10/19/24 cyanocobalamin (vitamin B-12) 100 100 mcg PO DAILY #90 tabs 10/24/24 mcg tablet norgestimate-ethinyl estradiol 1 tab PO QAM #84 tabs 10/24/24 0.18 mg/0.215mg/0.25mg-35 mcg(28)tablet (Tri-Sprintec (28)) paroxetine HCl 20 mg tablet 20 mg PO DAILY #90 tabs 10/24/24 doxycycline hyclate 100 mg capsule 100 mg PO BID 7 days #14 caps 11/12/24 sulfamethoxazole 800 1 tab PO BID 7 days #14 tabs 11/12/24 mg-trimethoprim 160 mg tablet (Bactrim DS) Allergies Allergy/AdvReac Type Severity Reaction Status Date / Time No Known Allergies Allergy Verified 11/09/24 08:41 Review of Systems General: Reports: 10 or more systems reviewed and unremarkable except in HPI and below PFSH ED PFSH: Medical History FLORENTINO (obstructive sleep apnea) Vitamin D deficiency Iron deficiency anemia DUB (dysfunctional uterine bleeding) Gout, arthritis Anxiety Surgical History History of cholecystectomy History of hip surgery pin in right hip Family History Other CAD (coronary artery disease) Diabetes Family history of premature coronary artery disease Hypertension Lung disease Stroke Denies family history of Rheumatoid arthritis Chronic kidney disease (CKD) Systemic lupus erythematosus (SLE) in adult Cancer Social History Smoking and tobacco/nicotine status: never used tobacco/nicotine Alcohol intake: never Substance/Drug Use: never Lives independently: Yes Household members: family and children Marital status: Single Number of children: 1 Current occupational status: employed 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 [employer] Special annette needs: No Agree to transfusion: Yes Physical Exam Const: COMMON NORMALS: no acute distress, patient oriented x3 and alert GENERAL APPEARANCE: cooperative ORIENTATION/CONSCIOUSNESS: Yes awake, Yes oriented to person, Yes oriented to place and Yes oriented to time HENMT: COMMON NORMALS: normocephalic and atraumatic HEAD & SCALP: normocephalic and atraumatic FACE & SINUS: normal facial exam MOUTH: Normal oral and palatal mucosa present THROAT: uvula midline, abnormal tonsil bilateral erythema, exudates, hypertrophy, crypts and other (Tonsil stones) and posterior oropharynx abnormal erythema Eye: COMMON NORMALS: Equal, round and reactive pupils present, EOMs intact bilaterally and no scleral icterus GENERAL EYE: appearance normal, both eyes and all related structures ALIGNMENT: Yes alignment normal PERIORBITAL: periorbital findings normal CONJUNCTIVA: Yes conjunctival abnormal positive bilateral conjunctival injection PUPIL: Yes Equal, round and reactive pupils present Neck/C-Spine: COMMON NORMALS: full ROM GENERAL: Yes normal visual inspection Lymph: LYMPHATIC: no lymphadenopathy noted Chest: COMMONS NORMALS: normal inspection of the chest Breast/axilla inspection: Yes no chest deformity, asymmetry, normal contours, no nodules, masses, tenderness Resp: COMMON NORMALS: normal respiratory effort, No retractions, No use of accessory muscles and clear to auscultation bilaterally EFFORT & INSPECTION: Yes able to speak in complete sentences and Yes symmetric chest movement AUSCULTATION: clear to auscultation bilaterally and diminished lung sounds on the left in the lower lung carrion Cardio: COMMON NORMALS: regular rate, regular rhythm and Peripheral pulses 2+ throughout RATE: regular rate RHYTHM: regular rhythm PERIPHERAL PULSES: Peripheral pulses 2+ throughout GI: COMMON NORMALS: Normal to inspection, nondistended, normoactive bowel sounds present, Soft to palpation, non-tender and No hepatosplenomegaly present INSPECTION: Yes normal to inspection AUSCULTATION: Yes normoactive bowel sounds PALPATION: Yes Soft to palpation and Yes No hepatosplenomegaly present RECTAL EXAM: deferred Extremity: COMMON NORMALS: normal to inspection GENERAL: Yes normal exam except as noted Neuro: COMMON NORMALS: patient oriented x3 SENSORIUM/ORIENTATION: Yes alert, Yes oriented to person, Yes oriented to place and Yes oriented to time CRANIAL NERVES: Yes CN normal except as noted Psych: COMMON NORMALS: mental status grossly normal, Normal thought process present, cooperative, activity/motor behavior normal, denies homicidal ideation and denies suicidal ideation THOUGHT PROCESS: Normal thought process present Skin: COMMON NORMALS: no rashes or lesions noted, no wounds and turgor normal GENERAL SKIN EXAM: no rashes or lesions noted and turgor normal Course Vital Signs: Vital signs: Vital Signs Temperature 98.0 F 11/12/24 12:08 Pulse Rate 104 H 11/12/24 12:08 Respiratory Rate 16 11/12/24 12:08 Blood Pressure 156/110 11/12/24 12:08 Pulse Oximetry 94 11/12/24 12:08 Oxygen Delivery Me thod Room Air 11/12/24 12:08 MDM - Fever Medical Decision Making Patient was evaluated in the emergency department today for complaints of fever and URI symptoms. Patient underwent diagnostic evaluation that included respiratory panel, CBC and CMP, strep swab, urinalysis, and a chest x-ray. Chest x-ray reveals a infiltrate versus atelectasis. There is no significant leukocytosis or anemias, no thrombocytopenia. Electrolytes are all grossly normal. Respiratory panel reveals adenovirus. Strep negative. Patient and I discussed adenovirus as well as the chest x-ray findings. I treated her for a community-acquired pneumonia with doxycycline. Patient also shows signs of a urinary tract infection with 50-100 white blood cells, leukoesterase and urine bacteria. I am going to treat her with Bactrim. I talked with her about managing her symptoms that include fever management. She has a little one at home and I have advised her that she can give this little once sick if she does not take precautions. Have given her information on adenovirus and managing her symptoms as well as preventing spread. Have advised her to not return to work until she is fever free without the assistance of fever reducing medication. Lab Data 11/12/24 13:24 11/12/24 13:24 Radiology Impressions Chest X-Ray 11/12/24 12:24 IMPRESSION: Pulmonary atelectasis or acute infiltrates within left lower chest. Laboratory Results WBC 7.42 10^3/uL (3.29-11.43) 11/12/24 13:24 RBC 4.86 10^6/uL (3.85-5.65) 11/12/24 13:24 Hgb 12.30 g/dL (11.27-16.99) 11/12/24 13:24 Hct 39.3 % (36-47) 11/12/24 13:24 MCV 80.9 fl (85-98) L 11/12/24 13:24 MCH 25.3 pg (27-33) L 11/12/24 13:24 MCHC 31.3 g/dL (30-55) 11/12/24 13:24 RDW 14.3 % (12.1-15.1) 11/12/24 13:24 Plt Count 302 10^3/cmm (157-399) 11/12/24 13:24 MPV 9.9 fL (7.4-10.4) 11/12/24 13:24 Neut % (Auto) 63.2 % 11/12/24 13:24 Lymph % (Auto) 28.3 % 11/12/24 13:24 [place] % (Auto) 6.3 % 11/12/24 13:24 Eos % (Auto) 1.6 % 11/12/24 13:24 Baso % (Auto) 0.3 % 11/12/24 13:24 Neut # (Auto) 4.69 10^3/uL (1.8-7.7) 11/12/24 13:24 Lymph # (Auto) 2.1 10^3/uL (0.8-4.8) 11/12/24 13:24 [place] # (Auto) 0.5 10^3/uL (0.2-0.9) 11/12/24 13:24 Eos # (Auto) 0.1 10^3/uL (0.0-0.8) 11/12/24 13:24 Baso # (Auto) 0.0 10^3/uL (0.0-0.1) 11/12/24 13:24 Nucleated RBC % (auto) 0 % 11/12/24 13:24 Nucleated RBCs # 0.0 /100WBC 11/12/24 13:24 Sodium 135 mmol/L (136-145) L 11/12/24 13:24 Potassium 4.5 mmol/L (3.5-5.1) 11/12/24 13:24 Chloride 100 mmol/L (98-107) 11/12/24 13:24 Carbon Dioxide 24 mmol/L (22-29) 11/12/24 13:24 Anion Gap 15.5 (5-19) 11/12/24 13:24 BUN 7 mg/dL (6-20) 11/12/24 13:24 Creatinine 0.5 mg/dL (0.5-0.9) 11/12/24 13:24 GFR Calculation 150.3 mL/min (90-130) H 11/12/24 13:24 Glucose 96 mg/dL (65-115) 11/12/24 13:24 Calculated Osmolality 278 mOsm/kg (285-295) L 11/12/24 13:24 Calcium 9.7 mg/dL (8.5-10.5) 11/12/24 13:24 Total Bilirubin 0.2 mg/dL (0.15-1.2) 11/12/24 13:24 AST 22 U/L (0-32) 11/12/24 13:24 ALT 23 U/L (0-33) 11/12/24 13:24 Alkaline Phosphatase 69 U/L (35-105) 11/12/24 13:24 Total Protein 7.5 g/dL (6.6-8.7) 11/12/24 13:24 Albumin 3.8 g/dL (3.5-5.2) 11/12/24 13:24 Globulin 3.7 g/dL (1.3-4.6) 11/12/24 13:24 Urine Color Yellow (Yellow) 11/12/24 02:39 Urine Appearance Cloudy (CLEAR) A 11/12/24 02:39 Urine pH 5.5 (5-7) 11/12/24 02:39 Ur Specific Bell 1.022 (1.005-1.030) 11/12/24 02:39 Urine Protein Trace (Negative) A 11/12/24 02:39 Urine Glucose (UA) Negative (Normal) 11/12/24 02:39 Urine Ketones Negative (Negative) 11/12/24 02:39 Urine Blood Trace (Negative) A 11/12/24 02:39 Urine Nitrate Negative (Negative) 11/12/24 02:39 Urine Bilirubin Negative (Negative) 11/12/24 02:39 Urine Urobilinogen 1.0 mg/dL (Negative) 11/12/24 02:39 Ur Leukocyte Esterase 2+ (Negative) A 11/12/24 02:39 Urine RBC 3-5 /hpf (0-2) 11/12/24 02:39 Urine WBC 51-100 /hpf (0-5) H 11/12/24 02:39 Ur Squamous Epith Cells 21-50 /hpf (0-5) 11/12/24 02:39 Amorphous Sediment Not Reportable 11/12/24 02:39 Urine Bacteria 4+ /hpf (NONE) H 11/12/24 02:39 Hyaline Casts 3.71 /lpf 11/12/24 02:39 Adenovirus (PCR) Detected (NOT DETECT) A 11/12/24 13:22 C. pneumoniae DNA (PCR) Not detected (NOT DETECT) 11/12/24 13:22 Coronavirus 229E (PCR) Not detected (NOT DETECT) 11/12/24 13:22 Human Metapneumovir PCR Not detected (NOT DETECT) 11/12/24 13:22 Influenza A (H1) PCR Not detected (NOT DETECT) 11/12/24 13:22 Influ A (H1/09) PCR Not detected (NOT DETECT) 11/12/24 13:22 Influenza A (H3) PCR Not detected (NOT DETECT) 11/12/24 13:22 Influenza Type A (PCR) Not detected (NOT DETECT) 11/12/24 13:22 Influenza Type B (PCR) Not detected (NOT DETECT) 11/12/24 13:22 M. pneumoniae (PCR) Not detected (NOT DETECT) 11/12/24 13:22 Parainfluenza 1 (PCR) Not detected (NOT DETECT) 11/12/24 13:22 Parainfluenza 2 (PCR) Not detected (NOT DETECT) 11/12/24 13:22 Parainfluenza 3 (PCR) Not detected (NOT DETECT) 11/12/24 13:22 Parainfluenza 4 (PCR) Not detected (NOT DETECT) 11/12/24 13:22 RSV Type A (PCR) Not detected (NOT DETECT) 11/12/24 13:22 RSV Type B (PCR) Not detected (NOT DETECT) 11/12/24 13:22 Entero/Rhino (PCR) Not detected (NOT DETECT) 11/12/24 13:22 SARS-CoV-2 (PCR) Not detected (NOT DETECT) 11/12/24 13:22 Group A Strep Rapid Negative (Negative) 11/12/24 15:36 All radiology interpretation(s) finalized by discharge Discharge Plan Discharge Patient Disposition: Home Clinical Impression: Pneumonia, Adenovirus infection, Urinary tract infection, Pharyngitis, Acute tonsillitis, Tonsillolith Condition: Stable Prescriptions: New doxycycline hyclate 100 mg capsule 100 mg PO BID 7 Days Qty: 14 0RF sulfamethoxazole-trimethoprim [Bactrim DS] 800-160 mg tablet 1 tab PO BID 7 Days Qty: 14 0RF No Action cholecalciferol (vitamin D3) 125 mcg (5,000 unit) capsule 125 mcg PO DAILY fluticasone propionate [Flonase Allergy Relief] 50 mcg/actuation spray,suspension 2 spray intranasal BID Qty: 16 0RF Rx Instructions: administer into each nostril levocetirizine 5 mg tablet 5 mg PO DAILY Qty: 14 0RF norgestimate-ethinyl estradiol [Tri-Sprintec (28)] 0.18/0.215/0.25 mg-35 mcg (28) tablet 1 tab PO QAM Qty: 84 1RF paroxetine HCl 20 mg tablet 20 mg PO DAILY Qty: 90 1RF cyanocobalamin (vitamin B-12) 100 mcg tablet 100 mcg PO DAILY Qty: 90 1RF Discharge Orders: Discharge ED (Routine); Ordered 11/12/24 Ordered By: Ольга Tapia [facility] [place] Referrals: Tika Umaña MD [Primary Care Provider] - Discharge Diet: Advance as tolerated Discharge Activity: Resume usual activity Patient Instructions: Pain Management, Bacterial Pneumonia (ED), Tonsil Stones, Pharyngitis (ED), Tonsillitis - Adult, Urinary Tract Infection - Women Activity Restrictions/Additional Instructions: Please take both medications. Bactrim is for a urinary tract infection. The doxycycline is for a pneumonia. Make sure to wash your hands throughout the day to help avoid the spread of adenovirus. Please follow-up with your doctor if you are not improving or if you are worsening. 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
== END 2024-11-12 16:47 | disposition home or self-care (01) ==
PROVIDERS: Emergency Medicine; Emergency Provider Nurse Practitioner; PCP Family Medicine
DX: J12.0 Adenoviral pneumonia (principal); N39.0 Urinary tract infection, site not specified; J03.90 Acute tonsillitis, unspecified; Z11.52 Encounter for screening for COVID-19
CPT/HCPCS: 71045; 80053; 81001; 85025; 87081; 87486; 87581; 87633; 87880; 99284

== ENCOUNTER → 2025-02-01 08:25 | Outpatient (BNVA) | payer OTHER, SELFPAY | PROVIDERS: PCP Family Medicine; Visit Provider Nurse Practitioner Family | DX: J02.9 Acute pharyngitis, unspecified (principal); J02.0 Streptococcal pharyngitis | CPT/HCPCS: 87880 ==

== ENCOUNTER 2025-04-26 13:54 | Outpatient (CLI) | payer OTHER, SELFPAY ==
--- NOTE | 2025-04-26 13:57 | XR_ITS ---
WS: [id number] Exam: XR foot RT min 3V* [id number] Date/Time of Exam: 04/26/2025 2:05 PM Reason For Exam: acute forefoot pain swelling No fracture noted. The joints are preserved. Mild soft tissue swelling over the dorsum of the forefoot. No radiopaque soft tissue foreign bodies. IMPRESSION1. Soft tissue swelling along the dorsum of the forefoot. No bony injury noted.
== END 2025-04-26 13:55 | disposition home or self-care (01) ==
PROVIDERS: PCP Family Medicine; Visit Provider Family Medicine
DX: M79.671 Pain in right foot (principal); R22.42 Localized swelling, mass and lump, left lower limb
CPT/HCPCS: 73630

== ENCOUNTER → 2025-10-23 12:01 | Outpatient (BNVA) | payer OTHER, SELFPAY | PROVIDERS: PCP Family Medicine; Visit Provider Family Medicine | DX: R31.9 Hematuria, unspecified (principal) | CPT/HCPCS: 81000 ==

== ENCOUNTER 2025-10-31 06:48 | Outpatient (RCR) | payer OTHER, SELFPAY | END 2025-11-01 23:59 | disposition home or self-care (01) | LOC: SPT 06:48 | PROVIDERS: PCP Family Medicine; Visit Provider Family Medicine | DX: S39.012D Strain of muscle, fascia and tendon of lower back, subsequent encounter (principal) | CPT/HCPCS: 97161; 97530 ==